=== PATIENT | male | born 1965 | race Caucasian/White ===

== ENCOUNTER 2016-09-11 11:36 | Emergency (ER) | payer OTHER ==
[2016-09-11 11:49] VITALS: BP 157/83; PULSE 69; TEMP 98.2; BMI 26.6
--- NOTE | 2016-09-11 12:38 | PDOC ---
History of Present Illness - General Chief Complaint: Injury Stated Complaint: HEAD INJURY Time Seen by Provider: 09/11/16 12:12 History Source: Patient Exam Limitations: No Limitations - History of Present Illness Initial Comments: 09/11/16 12:44 Chief complaint: Abrasion to forehead lightheadedness slight tenderness around abrasion History of present illness: Patient is a 51 year old female with a history of diverticulitis, stents in right leg, depression here today due to being in our CAT scan department having a CAT scan when IV contrast plastic contrast bottle fell hitting him in the mid upper for head causing a tiny abrasion. Patient reported that he felt slightly lightheaded and had tenderness to the area surrounding. Patient denies any nausea, vomiting, any hemotympanum or severe headache or change in vision or level of alertness. Patient is up-to-date with tetanus. Patient is on a low dose aspirin. Patient did not lose any consciousness. 09/11/16 12:57 Occurred: reports: just prior to arrival Severity: reports: mild Pain Location: reports: head (mid forehead upper ) Method of Injury: Yes: direct blow (by a plastic contrast bottle in CAT SCAN) Modifying Factors: improves with: None Loss of Consciousness: no loss of consciousness Associated Symptoms (Fall): headache, lightheadedness Past History - Past Medical History Allergies/Adverse Reactions: Allergies Allergy/AdvReac Type Severity Reaction Status Date / Time No Known Drug Allergies Allergy Verified 09/11/16 11:44 Home Medications: Ambulatory Orders Aspirin [ASA -] 81 mg PO DAILY 05/30/15 Zolpidem Tartrate [Ambien] 10 mg PO PRN PRN 07/02/15 Pravastatin Sodium [Pravachol -] 40 mg PO HS 03/13/16 Amox-Tr/K Cl [Augmentin 875-125mg Tablet -] 1 tab PO BID@0800,1730 #10 tablet Anemia: No GI Disorders: Yes (Diverticulitis) Disorders: Yes Hypercholesterolemia: Yes Kidney Stones: Yes Suicide Attempt (Hx): No - Family Disease History Family Disease History: Other: Mother (dvt) - Psycho/Social/Smoking Cessation Hx Anxiety: No Suicidal Ideation: No Smoking Status: Yes Smoking History: Never smoked Have you smoked in the past 12 months: No Number of Cigarettes Smoked Daily: 20 If you are a former smoker, when did you quit?: 4 MOTHS AGO Information on smoking cessation initiated: No 'Breaking Loose' booklet given: 07/02/15 Hx Alcohol Use: No Drug/Substance Use Hx: No Substance Use Type: None Hx Substance Use Treatment: No Review of Systems - Review of Systems Able to Perform ROS?: Yes Constitutional: No: Symptoms Reported HEENTM: No: Symptoms Reported Respiratory: No: Symptoms reported Cardiac (ROS): Yes: Lightheadedness ABD/GI: No: Symptoms Reported : No: Symptoms Reported Musculoskeletal: No: Symptoms Reported Integumentary: Yes: Other (tiny abrasion area mid upper forehead ) Neurological: Yes: Headache *Physical Exam - Vital Signs Last Vital Signs Temp Pulse Resp BP Pulse Ox 98.2 F 69 18 157/83 100 09/11/16 11:44 09/11/16 11:44 09/11/16 11:44 09/11/16 11:44 09/11/16 11:44 - Physical Exam General Appearance: Yes: Appropriately Dressed HEENT: positive: EOMI, AZALIA, Normal ENT Inspection Neck: negative: Lymphadenopathy (R), Lymphadenopathy (L) Respiratory/Chest: positive: Lungs Clear, Normal Breath Sounds. negative: Chest Tender, Respiratory Distress Cardiovascular: positive: Regular Rhythm, Regular Rate, S1, S2 Integumentary: positive: Other (tiny abrasion mid upper forehead) Neurologic: positive: patent engineer II-XII NML intact, Fully Oriented, Alert, Normal Response, Respond to painful stimul, Responsive, Finger to Nose. negative: Sensory Deficit Medical Decision Making - Medical Decision Making 09/11/16 12:39 Patient is a 51 year old female with a history of diverticulitis, stents in right leg, depression here today due to being in our CAT scan department having a CAT scan when IV contrast plastic contrast bottle fell hitting him in the mid upper for head causing a tiny abrasion. Patient reported that he felt slightly lightheaded and had tenderness to the area surrounding. Patient denies any nausea, vomiting, any hemotympanum or severe headache or change in vision or level of alertness. Patient is up-to-date with tetanus. Patient is on a low dose aspirin. Patient did not lose any consciousness. Closed head injury without any neurological deficits Abrasion to mid upper forehead Plan: Will send patient home no need to do head CT patient does not have any neurological deficits patient instructed to return if any occur Patient to cleanse abrasion with antibacterial soap and water pat dry and apply bacitracin twice a day until healed. 09/11/16 13:00 *DC/Admit/Observation/Transfer Diagnosis at time of Disposition: Head injury, acute, without loss of consciousness Qualifiers: Encounter type: initial encounter Qualified Code(s): S09.90XA - Unspecified injury of head, initial encounter Abrasion of forehead Qualifiers: Encounter type: initial encounter Qualified Code(s): S00.81XA - Abrasion of other part of head, initial encounter - Discharge Dispostion Disposition: HOME Condition at time of disposition: Stable - Referrals Referrals: Claudio Lee MD [Primary Care Provider] - - Patient Instructions Additional Instructions: Return to emergency room if any nausea, vomiting, severe headache, change in vision or level of alertness Cleanse abrasion to forehead with antibacterial soap and pat dry and apply bacitracin ointment Folloiw Up with your primary care provider within the next few days Patient Voiced understanding of discharge instructions and all questions were answered
== END 2016-09-11 13:04 | disposition home or self-care (01) ==
LOC: JERFT 11:36
DX: S00.81XA Abrasion of other part of head, initial encounter (principal); R42 Dizziness and giddiness; W20.8XXA Other cause of strike by thrown, projected or falling object, initial encounter; Y93.89 Activity, other specified; Y92.238 Other place in hospital as the place of occurrence of the external cause; Y99.8 Other external cause status
CPT/HCPCS: 99281-25

== ENCOUNTER 2016-10-21 11:26 | Observation (INO) | payer OTHER ==
[2016-10-21 11:37] VITALS: BMI 26.6
--- NOTE | 2016-10-21 11:51 | PDOC ---
History of Present Illness <Manpreet Colunga - Last Filed: 10/21/16 18:11> - History of Present Illness Initial Comments: 10/21/16 12:03 The patient is a 51 year old male, with a significant past medical history of diverticulitis, stents in right leg, hypercholesterolemia, kidney stones, and depression, who presents to the emergency department with left sided abdominal pain, nausea, vomiting and diarrhea since early this morning. He states he was up this morning with severe nausea and has been unable to tolerate PO. He states he has been out of work for a year because of his diverticulitis. He reports his lower extremity arterial stent was replaced on Saturday10/17/16 at [facility] with Dr. Galeano. He states he was feeling well after the procedure until this morning. He denies chest pain, shortness of breath, headache and dizziness. He denies fever, chills, and constipation. He denies dysuria, frequency, urgency and hematuria. Allergies: NKDA Social history: denies toxic habits PCP - Dr. Claudio Lee <Gean De Paz - Last Filed: 10/21/16 18:54> - General Chief Complaint: Pain Stated Complaint: ABDOMINAL PAIN Time Seen by Provider: 10/21/16 11:51 Past History - Past Medical History Anemia: No GI Disorders: Yes (Diverticulitis) Disorders: Yes Hypercholesterolemia: Yes Kidney Stones: Yes Suicide Attempt (Hx): No - Family Disease History Family Disease History: Other: Mother (dvt) - Psycho/Social/Smoking Cessation Hx Anxiety: No Suicidal Ideation: No Smoking Status: Yes Smoking History: Former smoker Have you smoked in the past 12 months: No Number of Cigarettes Smoked Daily: 20 If you are a former smoker, when did you quit?: 2016 Information on smoking cessation initiated: No 'Breaking Loose' booklet given: 07/02/15 Hx Alcohol Use: No Drug/Substance Use Hx: No Substance Use Type: None Hx Substance Use Treatment: No <Manpreet Colunga - Last Filed: 10/21/16 18:11> <Gena De Paz - Last Filed: 10/21/16 18:54> - Past Medical History Allergies/Adverse Reactions: Allergies Allergy/AdvReac Type Severity Reaction Status Date / Time No Known Drug Allergies Allergy Verified 10/21/16 11:36 Home Medications: Ambulatory Orders Aspirin [ASA -] 81 mg PO DAILY 05/30/15 Zolpidem Tartrate [Ambien] 10 mg PO PRN PRN 07/02/15 Atorvastatin Ca [Lipitor] 0 mg PO HS 10/21/16 Review of Systems - Review of Systems Able to Perform ROS?: Yes Comments:: 10/21/16 12:03 GENERAL/CONSTITUTIONAL: No fever or chills. No weakness. HEAD, EYES, EARS, NOSE AND THROAT: No change in vision. No ear pain or discharge. No sore throat. CARDIOVASCULAR: No chest pain or shortness of breath. RESPIRATORY: No cough, wheezing, or hemoptysis. GASTROINTESTINAL: (+) nausea, vomiting, diarrhea and abdominal pain. No constipation. GENITOURINARY: No dysuria, frequency, or change in urination. MUSCULOSKELETAL: No joint or muscle swelling or pain. No neck or back pain. SKIN: No rash NEUROLOGIC: No headache, vertigo, loss of consciousness, or change in strength/ sensation. ENDOCRINE: No increased thirst. No abnormal weight change. HEMATOLOGIC/LYMPHATIC: No anemia, easy bleeding, or history of blood clots. ALLERGIC/IMMUNOLOGIC: No hives or skin allergy. <Gena De Paz - Last Filed: 10/21/16 18:54> *Physical Exam - Vital Signs Last Vital Signs Temp Pulse Resp BP Pulse Ox 97.9 F 53 L 18 120/66 100 10/21/16 11:34 10/21/16 11:34 10/21/16 11:34 10/21/16 11:34 10/21/16 11:34 <Manpreet Colunga - Last Filed: 10/21/16 18:11> - Vital Signs Last Vital Signs Temp Pulse Resp BP Pulse Ox 97.9 F 53 L 18 120/66 100 10/21/16 11:34 10/21/16 11:34 10/21/16 11:34 10/21/16 11:34 10/21/16 11:34 - Physical Exam Comments: 10/21/16 12:03 GENERAL: Awake, alert, and fully oriented, in no acute distress HEAD: No signs of trauma EYES: PERRLA, EOMI, sclera anicteric, conjunctiva clear ENT: (+)Dry mucosa. Auricles normal inspection, hearing grossly normal, nares patent, oropharynx clear without exudates. NECK: Normal ROM, supple, no lymphadenopathy, JVD, or masses LUNGS: Breath sounds equal, clear to auscultation bilaterally. No wheezes, and no crackles HEART: Regular rate and rhythm, normal S1 and S2, no murmurs, rubs or gallops ABDOMEN: (+) diffuse mild tenderness on palpation. Soft, normoactive bowel sounds. No guarding, no rebound. No masses EXTREMITIES: Normal range of motion, no edema. No clubbing or cyanosis. No cords, erythema, or tenderness NEUROLOGICAL: Cranial nerves II through XII grossly intact. Normal speech SKIN: Warm, Dry, normal turgor, no rashes or lesions noted. <Gena De Paz - Last Filed: 10/21/16 18:54> Heart Score/ECG Review - ECG Intrepretation Comment:: 10/21/16 12:05 ECG was read by Dr. Colunga at 11:37 Impression: Sinus bradycardia with sinus arrhythmia Vent. Rate: 52 bpm SD Interval: 168 ms QTc: 470 ms <Gena De Paz - Last Filed: 10/21/16 18:54> ED Treatment Course - LABORATORY CBC & Chemistry Diagram: 10/21/16 11:52 10/21/16 11:52 <Manpreet Colunga - Last Filed: 10/21/16 18:11> - LABORATORY CBC & Chemistry Diagram: 10/21/16 11:52 10/21/16 11:52 - RADIOLOGY Radiograph Interpretation: 10/21/16 16:[address] was read by Dr. Roman at 16:43 Impression: Left sided colonic diverticulosis is noted without definite CT evidence of acute diverticulitis. <Gena De Paz - Last Filed: 10/21/16 18:54> Medical Decision Making - Medical Decision Making 10/21/16 12:08 The patient is a 51 year old male who presents with nausea, vomiting, abdominal pain, and diarrhea since this morning s/p right LE arterial stent replacement on 10/17/16 at [facility]. The patients medical history is significant for diverticulitis, stents in right leg, hypercholesterolemia, kidney stones, and depression, I will obtain to CBC, CMP, lipase, urinalysis, and abdominal CT, as well as administer zofran for nausea, to rule out Diverticulitis or ischemic bowel 10/21/16 16:42 The patient was reassessed and is still experiencing nausea and vomiting despite medication. Abdomen CT was reviewed and negative for any acute changes. I will discuss the patient's case with his PCP. Dr. Claudio Lee was paged via phone answering service at 16:58 requesting a call back for doctor to doctor consult. Dr. Claudio Lee was paged a second time via phone answering service at 17:27 requesting a call back for doctor to doctor consult. Dr. Hartley was paged at 17:49 requesting a call back for doctor to doctor consult regarding patient admission. 10/21/16 18:09 Dr. Lee was called a third time at 18:08 and the patient's case was discussed. He requests the patient be admitted to hospitalist and that he no longer admits to [facility]. <Gena De Paz - Last Filed: 10/21/16 18:54> *DC/Admit/Observation/Transfer - Discharge Dispostion Admit: Yes - Attestations Physician Attestion: 10/21/16 11:51 I, Dr. Manpreet Colunga, attest that this document has been prepared under my direction and personally reviewed by me in its entirety. I further attest, that it accurately reflects all work, treatment, procedures and medical decision -making performed by me. <Manpreet Colunga - Last Filed: 10/21/16 18:11> - Attestations Scribe Attestion: 10/21/16 12:04 Documentation prepared by Gena De Paz, acting as medical data analyst for Manpreet Colunga MD <Gena De Paz - Last Filed: 10/21/16 18:54> Diagnosis at time of Disposition: Intractable nausea and vomiting Qualifiers: Vomiting type: unspecified Qualified Code(s): R11.2 - Nausea with vomiting, unspecified - Discharge Dispostion Condition at time of disposition: Unchanged/Unknown - Referrals Referrals: Claudio Lee MD [Primary Care Provider] -
[2016-10-21] MEDS ORDERED: SODIUM CHLORIDE 1,000 ML IV STA (11:52)
[2016-10-21] MEDS ORDERED: ONDANSETRON 4 MG/2 ML VIAL IVPB ONE (11:52)
[2016-10-21] MEDS ORDERED: ONDANSETRON 4 MG/2 ML VIAL ONE (11:57)
[2016-10-21] MEDS ORDERED: LORAZEPAM CARPU-JECT 2 MG/ML DISP.SYRIN ONE (11:59)
[2016-10-21 12:30] LABS: ALBUMIN 4.1 g/dl (3.4-5.0); ANION GAP 15 (8-16); BILIRUBIN,TOTAL 1.3 mg/dL (0.2-1.0); CALCIUM 9.5 mg/dL (8.5-10.1); CO2 20 mmol/L (21-32); CREATININE 1.1 mg/dL (0.7-1.3); GLUCOSE,RANDOM 219 mg/dL (74-106); SGOT/AST 21 U/L (15-37); SGPT/ALT 28 U/L (12-78); TOT PROT 7.3 g/dl (6.4-8.2)
[2016-10-21 12:31] LABS: ALK PHOS 71 U/L (45-117)
[2016-10-21 12:45] LABS: BASOPHIL 0.2 % (0-2.0); EOSINOPHIL 0.1 % (0-4.5); MCH 31.6 pg (25.7-33.7); MCHC 33.4 g/dl (32.0-35.9); MEAN CELL VOLUME 94.7 fl (80-96); MEAN PLT VOLUME 9.3 fl (7.5-11.1); NEUTROPHILS 87.7 % (42.8-82.8); PLATELET COUNT 180 K/MM3 (134-434); RDW 13.4 % (11.9-15.9); WHITE BLOOD COUNT 12.9 K/mm3 (4.0-10.0)
[2016-10-21] MEDS ORDERED: LORAZEPAM CARPU-JECT 2 MG/ML DISP.SYRIN IVPUSH ONE (14:05)
[2016-10-21] MEDS ORDERED: PROMETHAZINE HCL 50 MG/1 ML AMP IM ONE (15:07)
[2016-10-21] MEDS ORDERED: PROMETHAZINE HCL 25 MG/1 ML VIAL ONE ×2 (15:13→15:15)
[2016-10-21] MEDS ORDERED: KETOROLAC TROMETHAMINE 30 MG/1 ML VIAL ONE (16:27)
[2016-10-21] MEDS ORDERED: METOCLOPRAMIDE HCL INJECTION 10 MG/2 ML VIAL IVPUSH ONE (16:27)
[2016-10-21] MEDS ORDERED: KETOROLAC TROMETHAMINE 30 MG/1 ML VIAL IVPUSH ONE ×2 (16:27→20:31)
[2016-10-21] MEDS ORDERED: METOCLOPRAMIDE HCL INJECTION 10 MG/2 ML VIAL ONE (16:27)
[2016-10-21 16:39] LABS: URINE APPEARANCE CLEAR; URINE BILIRUBIN NEGATIVE (NEGATIVE); URINE BLOOD NEGATIVE (NEGATIVE); URINE COLOR STRAW; URINE GLUCOSE (UA) 2+ (NEGATIVE); URINE KETONE 2+ (NEGATIVE); URINE LEUK ESTERASE NEGATIVE (NEGATIVE); URINE NITRITE NEGATIVE (NEGATIVE); URINE PROTEIN NEGATIVE (NEGATIVE); URINE UROBILINOGEN NEGATIVE E.U./dl (0.2-1.0)
--- NOTE | 2016-10-21 19:12 | PN ---
<Darryl Douglas - Last Filed: 10/21/16 19:10> Teaching Attending Note Name of Resident: Jerman Kumar ATTENDING PHYSICIAN STATEMENT I saw and evaluated the patient. I reviewed the resident's note and discussed the case with the resident. I agree with the resident's findings and plan as documented. SUBJECTIVE: OBJECTIVE: ASSESSMENT AND PLAN: <Yevgeniy Burksyna - Last Filed: 10/22/16 00:37> Teaching Attending Note ATTENDING PHYSICIAN STATEMENT I saw and evaluated the patient. I reviewed the resident's note and discussed the case with the resident. I agree with the resident's findings and plan as documented. SUBJECTIVE: Patient is a 51 year old male with significant past medical history of diverticulitis, stents in right leg, hypertension (not on medication), hyperlipidemia, kidney stones, and depression, who presents to the ED with abdominal pain. He reports nausea, vomiting, diarrhea and left sided abdominal pain. He reports 10 vomiting episodes since this morning non bilious non bloody and reports 1 episode of diarrhea at home today. His lower extremity arterial stent placed on 10/17/16 at [facility] by Dr. Galeano. OBJECTIVE: VS: Last Vital Signs Temp Pulse Resp BP Pulse Ox 97.9 F 66 18 187/89 100 10/21/16 11:34 10/21/16 18:35 10/21/16 18:35 10/21/16 18:35 10/21/16 18:35 GEN: NAD HEENT: NCAT, PERRL CARD: +systolic ejection murmur 2/6. RRR, S1 S2 RESP: CTAB ABD: +periumbilical abdominal pain to palpation, BWS x4 EXT: - CCE LABS: CBCD WBC 12.9 K/mm3 (4.0-10.0) H D 10/21/16 11:52 RBC 4.30 M/mm3 (4.00-5.60) 10/21/16 11:52 Hgb 13.6 GM/dL (11.7-16.9) 10/21/16 11:52 Hct 40.7 % (35.4-49) 10/21/16 11:52 MCV 94.7 fl (80-96) 10/21/16 11:52 MCHC 33.4 g/dl (32.0-35.9) 10/21/16 11:52 RDW 13.4 % (11.9-15.9) 10/21/16 11:52 Plt Count 180 K/MM3 (134-434) 10/21/16 11:52 MPV 9.3 fl (7.5-11.1) 10/21/16 11:52 CMP Sodium 141 mmol/L (136-145) 10/21/16 11:52 Potassium 3.7 mmol/L (3.5-5.1) 10/21/16 11:52 Chloride 106 mmol/L (98-107) 10/21/16 11:52 Carbon Dioxide 20 mmol/L (21-32) L 10/21/16 11:52 Anion Gap 15 (8-16) 10/21/16 11:52 BUN 17 mg/dL (7-18) 10/21/16 11:52 Creatinine 1.1 mg/dL (0.7-1.3) D 10/21/16 11:52 Creat Clearance w eGFR > 60 (>60) 10/21/16 11:52 Calcium 9.5 mg/dL (8.5-10.1) 10/21/16 11:52 Total Bilirubin 1.3 mg/dL (0.2-1.0) H 10/21/16 11:52 AST 21 U/L (15-37) 10/21/16 11:52 ALT 28 U/L (12-78) D 10/21/16 11:52 Alkaline Phosphatase 71 U/L (45-117) 10/21/16 11:52 Total Protein 7.3 g/dl (6.4-8.2) 10/21/16 11:52 Albumin 4.1 g/dl (3.4-5.0) 10/21/16 11:[address]: Impression: The study is mildly limited due to respiratory motion artifact. Left-sided colonic diverticulosis is noted without definite CT evidence of acute diverticulitis. ECG: sinus mesfin at 52 ASSESSMENT AND PLAN: Patient is a 51 year old male with significant past medical history of diverticulitis, stents in right leg, hyperlipidemia, recent dx of hypertension not on medication, kidney stones, and depression who who is being admitted for sepsis. 1. Sepsis - Unknown ideology - Hutchins culture - Stat lactic acid - CXR - Hold of abx maybe possible viral ideology 2. Hypertensive urgency - Post Amlodipine - Check home meds in the AM - Pain control - Hold off IVF until better controlled 3. New systolic ejection murmur - ECHO in the AM 4. Abdominal pain - Most likely due to viral gastroenteritis - Negative CT - Zofran PRN 5. Hyperbilirubinemia -Trend -If increasing check direct bili 5. Hyperlipidemia -Continue Statin 6. DVT ppx - Low risk - SCDs Place on Observation. Documentation prepared by SHIRIN Ayala, acting as medical aides teacher for Darryl Douglas MD.
--- NOTE | 2016-10-21 20:20 | HP ---
CHIEF COMPLAINT: nausea, vomiting PCP: Dr. Lee HISTORY OF PRESENT ILLNESS: 51 y/o M w/ PMH of diverticulitis, b/l leg stents for PAD, HLD, nephrolithiasis , and depression presents to the ER with c/o nausea, vomiting and diarrhea since this morning. Pt was feeling well yesterday and had R leg stents placed at [place] on 10/17/16 w/Dr. Galeano. He denies any recent abx use. He had 10 episodes of vomiting this morning and vomited 3 times in the ER today. Vomit was non-bloody and non-bilious. He had one episode of diarrhea before coming to the ER w/o blood in stool and noted that it soft in consistency and not watery. He did not feel like he had fevers or chills earlier today but upon coming to the hospital has began feeling hot and says his clothing had become drenched in sweat. Pt denies any change in diet, eating from new places , eating old food, and denies any sick contact, and no recent abx use. Pt does c/o of some diffuse abd pain since this morning as well, worse in epigastric region. He has not eaten all day today because he feels nauseous. Currently still feels nauseous and hot. He denies CP, SOB, leg swelling, light-headedness , dizziness, dysuria. ER course was notable for: (1) zofran, toradol, CT abd/pelvis (2) (3) PAST MEDICAL HISTORY: diverticulitis, PAD, HLD, nephrolithiasis, depression PAST SURGICAL HISTORY: stents for PAD (10/17/16 and again in 2016) Social History: Smoking: quit 1.5 years ago, smoked 1ppd for 20 years before that Alcohol: denies Drugs: denies Family History: denies any FH Allergies No Known Drug Allergies Allergy (Verified 10/21/16 11:36) HOME MEDICATIONS: Home Medications Medication Instructions Recorded Aspirin [ASA -] 81 mg PO DAILY 05/30/15 Zolpidem Tartrate [Ambien] 10 mg PO PRN PRN 07/02/15 Atorvastatin Ca [Lipitor] 0 mg PO HS 10/21/16 REVIEW OF SYSTEMS CONSTITUTIONAL: "feeling hot", diaphoretic Absent: chills, generalized weakness, malaise, loss of appetite, weight change HEENT: Absent: rhinorrhea, nasal congestion, throat pain, throat swelling, difficulty swallowing, mouth swelling, ear pain, eye pain, visual changes CARDIOVASCULAR: Absent: chest pain, syncope, palpitations, irregular heart rate, lightheadedness , peripheral edema RESPIRATORY: Absent: cough, shortness of breath, dyspnea with exertion, orthopnea, wheezing, stridor, hemoptysis GASTROINTESTINAL: abd pain, nausea, vomiting, diarrhea Absent: abdominal distension, constipation, melena, hematochezia GENITOURINARY: Absent: dysuria, frequency, urgency, hesitancy, hematuria, flank pain, genital pain MUSCULOSKELETAL: Absent: myalgia, arthralgia, joint swelling, back pain, neck pain SKIN: Absent: rash, itching, pallor HEMATOLOGIC/IMMUNOLOGIC: Absent: easy bleeding, easy bruising, lymphadenopathy, frequent infections ENDOCRINE: Absent: unexplained weight gain, unexplained weight loss, heat intolerance, cold intolerance NEUROLOGIC: Absent: headache, focal weakness or paresthesias, dizziness, unsteady gait, seizure, mental status changes, bladder or bowel incontinence PSYCHIATRIC: Absent: anxiety, depression, suicidal or homicidal ideation, hallucinations. PHYSICAL EXAMINATION Vital Signs - 24 hr 10/21/16 19:30 Temperature 99.0 F Pulse Rate 63 Respiratory 18 Rate Blood Pressure 184/87 GENERAL: Awake, alert, and fully oriented. Diaphoretic with gown soaked in sweat . HEAD: Normal with no signs of trauma. EYES: extraocular movements intact, sclera anicteric, conjunctiva clear. No lid lag. EARS, NOSE, THROAT: Ears normal, nares patent. Moist mucous membranes. NECK: Normal range of motion, JVD, or masses. LUNGS: Breath sounds equal, clear to auscultation bilaterally. No wheezes, and no crackles. No accessory muscle use. HEART: Regular rate and rhythm, normal S1 and S2, systolic murmur best heard in aortic region (3/6). ABDOMEN: Soft, diffuse mild tenderness, tenderness greatest in epigastric region , not distended, hypoactive bowel sounds, no guarding, no rebound, no masses. MUSCULOSKELETAL: Normal range of motion at all joints. No bony deformities or tenderness. LOWER EXTREMITIES: warm, well-perfused. No calf tenderness. No peripheral edema. NEUROLOGICAL: Normal speech. gait not obsereved. PSYCHIATRIC: Cooperative. Good eye contact. Appropriate mood and affect. SKIN: Warm, dry, normal turgor, no rashes or lesions noted, normal capillary refill. Surgical sites in inguinal region b/l look well healed no signs of infection. CBCD WBC 12.9 K/mm3 (4.0-10.0) H D 10/21/16 11:52 RBC 4.30 M/mm3 (4.00-5.60) 10/21/16 11:52 Hgb 13.6 GM/dL (11.7-16.9) 10/21/16 11:52 Hct 40.7 % (35.4-49) 10/21/16 11:52 MCV 94.7 fl (80-96) 10/21/16 11:52 MCHC 33.4 g/dl (32.0-35.9) 10/21/16 11:52 RDW 13.4 % (11.9-15.9) 10/21/16 11:52 Plt Count 180 K/MM3 (134-434) 10/21/16 11:52 MPV 9.3 fl (7.5-11.1) 10/21/16 11:52 CMP Sodium 141 mmol/L (136-145) 10/21/16 11:52 Potassium 3.7 mmol/L (3.5-5.1) 10/21/16 11:52 Chloride 106 mmol/L (98-107) 10/21/16 11:52 Carbon Dioxide 20 mmol/L (21-32) L 10/21/16 11:52 Anion Gap 15 (8-16) 10/21/16 11:52 BUN 17 mg/dL (7-18) 10/21/16 11:52 Creatinine 1.1 mg/dL (0.7-1.3) D 10/21/16 11:52 Creat Clearance w eGFR > 60 (>60) 10/21/16 11:52 Random Glucose 219 mg/dL (74-106) H D 10/21/16 11:52 Calcium 9.5 mg/dL (8.5-10.1) 10/21/16 11:52 Total Bilirubin 1.3 mg/dL (0.2-1.0) H 10/21/16 11:52 AST 21 U/L (15-37) 10/21/16 11:52 ALT 28 U/L (12-78) D 10/21/16 11:52 Alkaline Phosphatase 71 U/L (45-117) 10/21/16 11:52 Total Protein 7.3 g/dl (6.4-8.2) 10/21/16 11:52 Albumin 4.1 g/dl (3.4-5.0) 10/21/16 11:52 Urine Test Results Urine Color Straw 10/21/16 11:52 Urine Appearance Clear 10/21/16 11:52 Urine pH 8.0 (5.0-8.0) D 10/21/16 11:52 Ur Specific [place] 1.016 (1.001-1.035) 10/21/16 11:52 Urine Protein Negative (NEGATIVE) 10/21/16 11:52 Urine Glucose (UA) 2+ (NEGATIVE) H 10/21/16 11:52 Urine Ketones 2+ (NEGATIVE) H 10/21/16 11:52 Urine Blood Negative (NEGATIVE) 10/21/16 11:52 Urine Nitrite Negative (NEGATIVE) 10/21/16 11:52 Urine Bilirubin Negative (NEGATIVE) 10/21/16 11:52 Ur Leukocyte Esterase Negative (NEGATIVE) 10/21/16 11:52 Laboratory Tests 10/21/16 10/21/16 11:52 20:50 Lactic Acid Pending Lipase [address] abd/pelvis 10/21/16: L sided colonic diverticulosis noted without definite CT evidence of acute diverticulitis. CXR 10/21/16 as per my read, no acute pathology Active Medications Acetaminophen (Tylenol -) 650 mg PO Q6H PRN PRN Reason: FEVER OR PAIN Ondansetron HCl (Zofran Injection) 4 mg IVPB Q8H PRN PRN Reason: NAUSEA ASSESSMENT/PLAN: 51 y/o M w/ PMH of diverticulitis, b/l leg stents for PAD, HLD, nephrolithiasis , and depression presents to the ER with c/o nausea, vomiting and diarrhea since this morning. Admitted for sepsis. -Attempted to call ines on [facility] for med list but was placed on hold for over 30+ min. Please try to confirm med list from pharmacy. -Sepsis secondary to unknown etiology -WBC, Fever 100.6 (2/4 sirs) -F/u BCx, UCx -trend Lactic acid, first lactic acid 1.9 (borderline high) -tylenol 650 mg po q6h prn for fever/pain -stat cxr ordered to assess for pna -HTN urgency -BP 195/95 -> after one dose of amlodipine: 156/76 -amlodipine 5 mg for now, reassess after medication given -blood pressure responding well to amlodipine, will order amlodipine 5 mg po qd for now -pt states he was only recently diagnosed with htn but has not been started on any meds yet -trop neg x1 -New onset murmur -systolic murmur best heard in aortic region -Echo ordered -abdominal pain secondary to viral gastroenteritis -stool is soft, not watery -will hold off on fluids for now due to hypertensive urgency -pain control w/ toradol 30 mg once for now -zofran 4mg IV q8h prn for nausea/vomiting -Hyperglycemia -A1C added on, f/u -Hyperbilirubinemia -Monitor for now, if trending up, check direct bili -ELEAZAR -Baseline Cr 0.8, currently 1.1 -Monitor for now, most likely secondary to dehydration, vomiting -HLD -c/w statin once med is found through pharmacy -Insomnia -Ambien 5mg po qhs once confirmed through pharmacy -DVT ppx -SCDs -FEN -No fluids for now due to elevated blood pressure -electrolytes wnl -NPO for now except for meds -Dispo: Admit to M/S Visit type - Emergency Visit Emergency Visit: Yes ED Registration Date: 10/21/16 Care time: The patient presented to the Emergency Department on the above date and was hospitalized for further evaluation of their emergent condition. - New Patient This patient is new to me today: Yes Date on this admission: 10/25/16 - Critical Care Critical Care patient: No
[2016-10-21] MEDS ORDERED: ACETAMINOPHEN 325 MG TABLET (FP) PO PRN (20:21)
[2016-10-21] MEDS ORDERED: ONDANSETRON 4 MG/2 ML VIAL IVPB PRN ×2 (20:21→20:31)
[2016-10-21] MEDS: amLODIPine BESYLATE 5 MG TABLET (FP) PO ONE ×2 (20:42→20:47)
[2016-10-22 08:11] LABS: BASOPHIL 0.2 % (0-2.0); MCH 31.6 pg (25.7-33.7); MCHC 33.7 g/dl (32.0-35.9); MEAN CELL VOLUME 93.8 fl (80-96); MEAN PLT VOLUME 9.4 fl (7.5-11.1); NEUTROPHILS 82.3 % (42.8-82.8); PLATELET COUNT 181 K/MM3 (134-434); RDW 13.5 % (11.9-15.9); WHITE BLOOD COUNT 14.5 K/mm3 (4.0-10.0)
[2016-10-22 08:45] LABS: ALBUMIN 4.5 g/dl (3.4-5.0); ALK PHOS 73 U/L (45-117); ANION GAP 13 (8-16); BILIRUBIN,TOTAL 0.8 mg/dL (0.2-1.0); CALCIUM 9.6 mg/dL (8.5-10.1); CO2 22 mmol/L (21-32); CREATININE 0.8 mg/dL (0.7-1.3); GLUCOSE,RANDOM 115 mg/dL (74-106); SGOT/AST 18 U/L (15-37); SGPT/ALT 27 U/L (12-78); TOT PROT 7.6 g/dl (6.4-8.2)
[2016-10-22] MEDS ORDERED: PT OWN MED DRAWER 7, Y5N ONE (09:36)
[2016-10-22] MEDS ORDERED: amLODIPine BESYLATE 5 MG TABLET (FP) PO SCH (10:00)
--- NOTE | 2016-10-22 10:38 | PN ---
Teaching Attending Note Name of Resident: Kei Mcfadden ATTENDING PHYSICIAN STATEMENT I saw and evaluated the patient. I reviewed the resident's note and discussed the case with the resident. I agree with the resident's findings and plan as documented. SUBJECTIVE:states his nausea has improved. has not vomited today. no repeated episodes of loose stools (1 episode yesterday) states his symptoms woke him up from sleep yesterday and he was concerned he was having another diverticular flare, last one 3 months ago and completed abx treatment at that time. states he has had several flares this past year. states he did not receive ABx treatment for his angioplasty he had last week. girlfriend prepares food at home. no unusual or differnt foods, no sick contacts. no recent travel. does tile work for a living. recently started on HTN medications 3 months ago and states he is compliant but does not recall name. denies CP, SOB,fever, chills, dysuria, hematuria, BRBPR or melena OBJECTIVE: Last Vital Signs Temp Pulse Resp BP Pulse Ox 99.0 F 56 L 20 160/80 100 10/22/16 06:00 10/22/16 06:00 10/22/16 06:00 10/22/16 06:00 10/22/16 03:13 General mildly anxious CV S1 S2 RRR no murmur/rub/gallop Lungs CTA B/L no wheezing/rales/rhonchi Abdomen soft epigastric tenderness no rebound/guarding/yancey sign. nomoactive BS Extremities no edema. ecchymosis L groin no signs of erythema/tenderness/warmth , no purulent drainage R groin nothing appreciated ASSESSMENT AND PLAN: 51yo M with PMH HTN, diverticulosis, dyslipidemia and PVD with recent stent placement presented to the ER and was admitted for observation 1. Sepsis due to presumed viral gastroenteritis- clinically improved. states he feels much better with no recurrent episodes of vomiting and no loose stools. Tm 100.6 with mild leukocytosis. UA and CXR negative for acute pathology. requesting to eat. will start clear liquid diet, if tolerates will advance to full diet. CT done with no signs of infection 2. HTN urgency- received norvasc with improvement. call pharmacy to confirm home medications and re-start medications 3. Hyperglycemia- A1c 5.5, no indication for further management at this time 4. ELEAZAR- dehydration. resolved 5. murmur- murmur appreciated on admission, likely flow murmur as not appreciated at this time. echo already done. will f/u 6. PVD- with stent placement. on crestor 5mg. discuss with vascular surgeon about increasing high intensity statin 7. d/c planning if able to tolerate diet
[2016-10-22] MEDS ORDERED: SODIUM CHLORIDE 1,000 ML IV SCH (10:45)
--- NOTE | 2016-10-22 11:02 | PN ---
Physical Exam: SUBJECTIVE: Patient seen and examined Pt is awake, alert and oriented Mildly anxious No s.s of acute distress no fever or chills no more n/v since yesterday no more abdominal pain no diarrhea no cough, rhinnorhea, shortness of breath, chest pain, no dysuria, no skin redness/swelling/tenderness OBJECTIVE: Vital Signs Period Temp Pulse Resp BP Sys/Springer Pulse Ox Last 24 Hr 98.4 F-100.6 F 56-63 18-20 156-195/76-95 100-100 GENERAL: The patient is awake, alert, and fully oriented, in no acute distress. HEAD: Normal with no signs of trauma. ENT: Ears normal, nares patent, oropharynx clear without exudates, dry mucous membranes. NECK: Trachea midline, full range of motion, supple. LUNGS: Breath sounds equal, clear to auscultation bilaterally, no wheezes, no crackles, no accessory muscle use. HEART: Regular rate and rhythm, S1, S2 without murmur, rub or gallop. ABDOMEN: Soft, epigastric tenderness, nondistended, normoactive bowel sounds, no guarding, no rebound, no hepatosplenomegaly, no masses. EXTREMITIES: 2+ pulses, warm, well-perfused, no edema. NEUROLOGICAL:. Normal speech, normal gait PSYCH: Normal mood, normal affect. SKIN: Warm, dry, normal turgor, no rashes or lesions noted Laboratory Results - last 24 hr 10/21/16 10/21/16 10/21/16 20:50 21:15 21:15 WBC RBC Hgb Hct MCV MCHC RDW Plt Count MPV Neutrophils % Lymphocytes % Monocytes % Eosinophils % Basophils % Sodium Potassium Chloride Carbon Dioxide Anion Gap BUN Creatinine Creat Clearance w eGFR Random Glucose Hemoglobin A1c % 5.5 Lactic Acid 1.949 Calcium Total Bilirubin AST ALT Alkaline Phosphatase Troponin I < 0.02 Total Protein Albumin 10/22/16 10/22/16 06:30 06:30 WBC 14.5 H RBC 4.37 Hgb 13.8 Hct 41.0 MCV 93.8 MCHC 33.7 RDW 13.5 Plt Count 181 MPV 9.4 Neutrophils % 82.3 Lymphocytes % 10.2 D Monocytes % 7.3 Eosinophils % 0.0 D Basophils % 0.2 Sodium 139 Potassium 3.5 Chloride 104 Carbon Dioxide 22 Anion Gap 13 BUN 14 Creatinine 0.8 D Creat Clearance w eGFR > 60 Random Glucose 115 H D Hemoglobin A1c % Lactic Acid Calcium 9.6 Total Bilirubin 0.8 D AST 18 ALT 27 Alkaline Phosphatase 73 Troponin I Total Protein 7.6 Albumin 4.5 Active Medications Generic Name Dose Route Start Last Admin Trade Name Bronsonq PRN Reason Stop Dose Admin Acetaminophen 650 mg 10/21/16 20:21 Tylenol - PO Q6H PRN FEVER OR PAIN Amlodipine Besylate 5 mg 10/22/16 10:00 10/22/16 09:42 Norvasc - PO 5 mg DAILY NICOLASA Administration Sodium Chloride 1,000 mls @ 100 mls/hr 10/22/16 10:45 Normal Saline - IV ASDIR NICOLASA Ondansetron HCl 4 mg 10/21/16 20:31 Zofran Injection IVPB Q8H PRN NAUSEA CBC, BMP 10/22/16 06:30 10/22/16 06:30 Laboratory Tests 10/21/16 10/21/16 10/21/16 11:52 11:52 20:50 Hemoglobin A1c % Lactic Acid 1.949 Total Bilirubin Troponin I Lipase 100 Urine Nitrite Negative Ur Leukocyte Esterase Negative 10/21/16 10/21/16 10/22/16 21:15 21:15 06:30 Hemoglobin A1c % 5.5 Lactic Acid Total Bilirubin 0.8 D Troponin I < 0.02 Lipase Urine Nitrite Ur Leukocyte Esterase ASSESSMENT/PLAN: 51 year old male with pmh of diverticulitis abnd recent right leg stent placeemnt (10/17/16) presnted to the ED with complaint of nausea, vomiting, abdominal pain and low grade fever. CT of abdomen was negative. Sepsis rt to viral gastroenteritis Pt has fever, leukocytosis and suspected GI source of infection No diarrhea, no bloody stool, no mucus in stool, no recent antibiotic use, no sick contact Symptoms of nausea and vomiting has resolved Pt does not look toxic and is comfortable right now No need for antibiotic right now IV fluid NS at 100ml/h Zofran PRN ACetaminophen PRN follow culture result Hypertensive urgency BP was 195/95 on admission SBP has been in 160's overnight On amlodipine 5mg po qd Systolic murmur Ritchie by night team F/u echo Hyperglicemia r/o impaired glucose tolerance/Pre-diabetes BS 219 on admission HgA1c 5.5 Not in prediabetes or diabetes range but always encourage lifestyle change with weight loss, diet, exercise ELEAZAR Cr 1.1, basline seem to be 0.8. likely rt to dehydration from vomiting Start NS at 100ml/h Hyperlipidemia resume rosubastatin 5mg PO qd Hypebilirubinemia Total Bilirubin 1.3 to 0.8. Resolved FEN Fluuid: NS at 100ml/h Electrolytes: No abdnormalities Nutrition: Clear liquid diet DVT prophylaxis: early ambulation [facility] and tolerance Visit type - Emergency Visit Emergency Visit: Yes ED Registration Date: 10/21/16 Care time: The patient presented to the Emergency Department on the above date and was hospitalized for further evaluation of their emergent condition. - New Patient This patient is new to me today: Yes Date on this admission: 10/22/16 - Critical Care Critical Care patient: No - Discharge Referral Referred to [facility] Med P.C.: No
[2016-10-22 17:47] VITALS: BP 132/77; PULSE 83; TEMP 98.5
--- NOTE | 2016-10-22 18:36 | DS ---
Physical Exam: SUBJECTIVE: Patient seen and examined OBJECTIVE: Vital Signs Period Temp Pulse Resp BP Sys/Springer Pulse Ox Last 24 Hr 98.3 F-100.6 F 56-108 18-20 130-195/76-95 100-100 PHYSICAL EXAM GENERAL: The patient is awake, alert, and fully oriented, in no acute distress. HEAD: Normal with no signs of trauma. EYES: PERRL, extraocular movements intact, sclera anicteric, conjunctiva clear. ENT: Ears normal, nares patent, oropharynx clear without exudates, moist mucous membranes. NECK: Trachea midline, full range of motion, supple. LUNGS: Breath sounds equal, clear to auscultation bilaterally, no wheezes, no crackles, no accessory muscle use. HEART: Regular rate and rhythm, S1, S2 without murmur, rub or gallop. ABDOMEN: Soft, nontender, nondistended, normoactive bowel sounds, no guarding, no rebound, no hepatosplenomegaly, no masses. EXTREMITIES: 2+ pulses, warm, well-perfused, no edema. NEUROLOGICAL: Cranial nerves II through XII grossly intact. Normal speech, gait not observed. PSYCH: Normal mood, normal affect. SKIN: Warm, dry, normal turgor, no rashes or lesions noted. LABS Laboratory Results - last 24 hr 10/21/16 10/21/16 10/21/16 20:50 21:15 21:15 WBC RBC Hgb Hct MCV MCHC RDW Plt Count MPV Neutrophils % Lymphocytes % Monocytes % Eosinophils % Basophils % Sodium Potassium Chloride Carbon Dioxide Anion Gap BUN Creatinine Creat Clearance w eGFR Random Glucose Hemoglobin A1c % 5.5 Lactic Acid 1.949 Calcium Total Bilirubin AST ALT Alkaline Phosphatase Troponin I < 0.02 Total Protein Albumin 10/22/16 10/22/16 06:30 06:30 WBC 14.5 H RBC 4.37 Hgb 13.8 Hct 41.0 MCV 93.8 MCHC 33.7 RDW 13.5 Plt Count 181 MPV 9.4 Neutrophils % 82.3 Lymphocytes % 10.2 D Monocytes % 7.3 Eosinophils % 0.0 D Basophils % 0.2 Sodium 139 Potassium 3.5 Chloride 104 Carbon Dioxide 22 Anion Gap 13 BUN 14 Creatinine 0.8 D Creat Clearance w eGFR > 60 Random Glucose 115 H D Hemoglobin A1c % Lactic Acid Calcium 9.6 Total Bilirubin 0.8 D AST 18 ALT 27 Alkaline Phosphatase 73 Troponin I Total Protein 7.6 Albumin 4.5 HOSPITAL COURSE: Date of Admission:10/21/16 51 y/o M w/ PMH of diverticulitis, b/l leg stents for PAD, HLD, nephrolithiasis , and depression presents to the ER with c/o nausea, vomiting and diarrhea since this morning. Pt was feeling well yesterday and had R leg stents placed at [place] on 10/17/16 w/Dr. Galeano. He denies any recent abx use. He had 10 episodes of vomiting this morning and vomited 3 times in the ER today. Vomit was non-bloody and non-bilious. He had one episode of diarrhea before coming to the ER w/o blood in stool and noted that it soft in consistency and not watery. He did not feel like he had fevers or chills earlier today but upon coming to the hospital has began feeling hot and says his clothing had become drenched in sweat. Pt denies any change in diet, eating from new places , eating old food, and denies any sick contact, and no recent abx use. Pt does c/o of some diffuse abd pain since this morning as well, worse in epigastric region. He has not eaten all day today because he feels nauseous. Currently still feels nauseous and hot. He denies CP, SOB, leg swelling, light-headedness , dizziness, dysuria. ER course was notable for:(1) zofran, toradol, CT abd/pelvis 51 year old male with pmh of diverticulitis abnd recent right leg stent placement (10/17/16) presented to the ED with complaint of nausea, vomiting, abdominal pain and low grade fever. CT of abdomen was negative. Pt was diagnosed with Sepsis rt to viral gastroenteritis, Pt has fever, leukocytosis and suspected GI source of infection on admission. Pt had No diarrhea, no bloody stool, no mucus in stool, no recent antibiotic use, no sick contact. Symptoms of nausea and vomiting has resolved. Pt does not look toxic and is comfortable right now. No need for antibiotic right now. Pt was treated with supportive care with IV fluid NS at 100ml/h, Zofran PRN, Acetaminophen PRN. Pt had Hypertensive urgency. BP was 195/95 on admission. SBP has been in 160's overnight. Pt was started on amlodipine 5mg po qd. Blood pressure normalized. The Admitted physician felt that there was a Systolic murmur,an echo was done, it was essentially normal. Pt has Hyperlipidemia. We resume rosubastatin 5mg PO qd. Pt had Hypebilirubinemia, with Total Bilirubin 1.3. it was resolved upon repeat with Tbili 0.8. Date of Discharge: 10/22/16 Minutes to complete discharge: 40 Discharge Summary Reason For Visit: INTRACTABLE NAUSEA AND VOMITING Current Active Problems Intractable nausea and vomiting (Acute) Condition: Stable - Instructions Diet, Activity, Other Instructions: Discharge Home Resume Home Medication Start Low Sodium Diet Start Amlodipine 5mg orally daily Follow up with your primary care physician within 1 week Referrals: Claudio Lee MD [Primary Care Provider] - Delvis Galeano MD [Staff Physician] - Disposition: HOME - Home Medications Comprehensive Discharge Medication List: Ambulatory Orders Aspirin [ASA -] 81 mg PO DAILY 05/30/15 Zolpidem Tartrate [Ambien] 10 mg PO PRN PRN 07/02/15 Amlodipine Besylate [Norvasc -] 5 mg PO DAILY #30 tablet 10/22/16 Clopidogrel Bisulfate [Plavix -] 75 mg PO DAILY 10/22/16 FENTANYL 50mcg PATCH [DURAGESIC 50mcg PATCH -] 1 adh.patch TD Q3D 10/22/16 Oxycodone HCl 10 mg PO Q8H PRN 10/22/16 Pantoprazole Sodium [Protonix -] 40 mg PO DAILY 10/22/16 Paroxetine HCl [Paxil -] 10 mg PO DAILY 10/22/16 Rosuvastatin Calcium [Crestor] 1 tab PO HS 10/22/16 This patient is new to me today: No Emergency Visit: Yes ED Registration Date: 10/21/16 Care time: The patient presented to the Emergency Department on the above date and was hospitalized for further evaluation of their emergent condition. Critical Care patient: No - Discharge Referral Referred to [facility] Med P.C.: No
--- NOTE | 2016-10-23 13:36 | EKG ---
Test Reason : Blood Pressure : / mmHG Vent. Rate : 052 BPM Atrial Rate : 052 BPM P-R Int : 168 ms QRS Dur : 092 ms QT Int : 506 ms P-R-T Axes : 059 069 089 degrees QTc Int : 470 ms SINUS BRADYCARDIA WITH SINUS ARRHYTHMIA OTHERWISE NORMAL ECG WHEN COMPARED WITH ECG OF 16-FEB-2016 09:07, NO SIGNIFICANT CHANGE WAS FOUND Confirmed by WILFRID HERNANDEZ MD ([id number]) on 10/23/2016 1:35:49 PM Referred By: Confirmed By:WILFRID HERNANDEZ MD
== END 2016-10-22 18:55 | disposition home or self-care (01) ==
LOC: JER 11:26 → INTOOBSV 18:37 → JERBED 18:37 → J8W 18:57
PROVIDERS: ADMIT Internal Medicine; ATTEND Internal Medicine
DX: A41.89 Other specified sepsis (principal); R11.2 Nausea with vomiting, unspecified; E78.00 Pure hypercholesterolemia, unspecified; K57.92 Diverticulitis of intestine, part unspecified, without perforation or abscess without bleeding; N20.0 Calculus of kidney; F32.9 Major depressive disorder, single episode, unspecified; G47.09 Other insomnia; E80.6 Other disorders of bilirubin metabolism; R01.1 Cardiac murmur, unspecified; N17.9 Acute kidney failure, unspecified; I16.0 Hypertensive urgency; I73.89 Other specified peripheral vascular diseases; A08.39 Other viral enteritis; R73.9 Hyperglycemia, unspecified; Z87.891 Personal history of nicotine dependence
CPT/HCPCS: 36415; 71010-TC; 74177-TC; 80053; 81003; 83036; 83605; 83690; 84484; 85025; 87040; 87086; 93005; 93010; 93306-TC; 99284-25; G0378

== ENCOUNTER 2016-10-24 04:45 | Emergency (ER) | payer OTHER ==
--- NOTE | 2016-10-24 04:59 | PDOC ---
History of Present Illness - General History Source: Patient <LavellChristopher - Last Filed: 10/24/16 06:40> - General History Source: Patient Exam Limitations: No Limitations - History of Present Illness Initial Comments: 10/24/16 05:13 The patient is a 51 year old male with significant past medical history of diverticulitis, PAD s/p b/l leg stents (10/17/16), hyperlipidemia, nephrolithiasis, and depression who presents to the ED with persistent abdominal pain. Patient was seen here on 10/21 for abdominal pain with n/v/d. At that time, he was also noted to be s/p right LE arterial stent replacement on at [facility]. Patient was admitted for sepsis of unknown origin, treated and discharged on 10/22. He returns today for similar symptoms and states his symptoms has not resolved since his last discharge. The patient denies fever, chills, cough, SOB, chest pain, and palpitations. Allergies: NKDA Social History: Quit 1.5 years ago (smoked ppd for 20 years). Denies etoh or drug use. Past Surgical History: stents for PAD (10/17/16) PCP: Dr. Claudio Lee <Adrianna Cristina - Last Filed: 10/24/16 06:44> - General Stated Complaint: REVISIT, ABD PAIN Time Seen by Provider: 10/24/16 04:58 Past History - Past Medical History Anemia: No GI Disorders: Yes (Diverticulitis) Disorders: Yes Hypercholesterolemia: Yes Kidney Stones: Yes Suicide Attempt (Hx): No - Family Disease History Family Disease History: Other: Mother (dvt) - Psycho/Social/Smoking Cessation Hx Anxiety: No Suicidal Ideation: No Smoking Status: Yes Smoking History: Never smoked Have you smoked in the past 12 months: No Number of Cigarettes Smoked Daily: 20 If you are a former smoker, when did you quit?: 4 MOTHS AGO 'Breaking Loose' booklet given: 07/02/15 Hx Alcohol Use: No Drug/Substance Use Hx: No Substance Use Type: None Hx Substance Use Treatment: No <Christopher Monte - Last Filed: 10/24/16 06:40> <Adrianna Cristina - Last Filed: 10/24/16 06:44> - Past Medical History Allergies/Adverse Reactions: Allergies Allergy/AdvReac Type Severity Reaction Status Date / Time No Known Drug Allergies Allergy Verified 10/21/16 11:36 Home Medications: Ambulatory Orders Aspirin [ASA -] 81 mg PO DAILY 05/30/15 Zolpidem Tartrate [Ambien] 10 mg PO PRN PRN 07/02/15 Amlodipine Besylate [Norvasc -] 5 mg PO DAILY #30 tablet 10/22/16 Clopidogrel Bisulfate [Plavix -] 75 mg PO DAILY 10/22/16 FENTANYL 50mcg PATCH [DURAGESIC 50mcg PATCH -] 1 adh.patch TD Q3D 10/22/16 Oxycodone HCl 10 mg PO Q8H PRN 10/22/16 Pantoprazole Sodium [Protonix -] 40 mg PO DAILY 10/22/16 Paroxetine HCl [Paxil -] 10 mg PO DAILY 10/22/16 Rosuvastatin Calcium [Crestor] 1 tab PO HS 10/22/16 Ibuprofen 800 mg PO TID #30 tablet 10/24/16 Ondansetron [Zofran *Odt*] 4 mg SL TID #30 od.tablet 10/24/16 Review of Systems - Review of Systems Able to Perform ROS?: Yes Comments:: 10/24/16 05:13 CONSTITUTIONAL: Absent: fever, chills, diaphoresis, generalized weakness, malaise, loss of appetite HEENT: Absent: rhinorrhea, nasal congestion, throat pain, throat swelling, difficulty swallowing, mouth swelling, ear pain, eye pain, visual Changes CARDIOVASCULAR: Absent: chest pain, syncope, palpitations, irregular heart rate, lightheadedness , peripheral edema RESPIRATORY: Absent: cough, shortness of breath, dyspnea with exertion, orthopnea, wheezing, stridor, hemoptysis GASTROINTESTINAL: +abdominal pain, nausea, vomiting, diarrhea Absent: abdominal distension, constipation, melena, hematochezia GENITOURINARY: Absent: dysuria, frequency, urgency, hesitancy, hematuria, flank pain, genital pain MUSCULOSKELETAL: Absent: myalgia, arthralgia, joint swelling SKIN: Absent: rash, itching, pallor NEUROLOGIC: Absent: headache, focal weakness or paresthesias, dizziness, unsteady gait, seizure, mental status changes, bladder or bowel incontinence PSYCHIATRIC: Absent: anxiety, depression, suicidal or homicidal ideation, hallucinations. <Bhskyeat,Adrianna - Last Filed: 10/24/16 06:44> *Physical Exam - Vital Signs Last Vital Signs Temp Pulse Resp BP Pulse Ox 64 20 177/95 100 10/24/16 05:02 10/24/16 05:02 10/24/16 05:02 10/24/16 05:02 - Physical Exam Comments: 10/24/16 05:14 GENERAL: Well developed, well nourished. Awake and alert. Mild distress. HEENT: Normocephalic, atraumatic. PERRLA, EOMI. No conjunctival pallor. Sclera are non- icteric. Moist mucous membranes. Oropharynx is clear. NECK: Supple. Full ROM. No JVD. Carotid pulses 2+ and symmetric, without bruits. No thyromegaly. No lymphadenopathy. CARDIOVASCULAR: Regular rate and rhythm. No murmurs, rubs, or gallops. Distal pulses are 2+ and symmetric. PULMONARY: No evidence of respiratory distress. Lungs clear to auscultation bilaterally. No wheezing, rales or rhonchi. ABDOMINAL: Soft. Mild diffuse tenderness. Non-distended. No rebound or guarding. No organomegaly. Normoactive bowel sounds. MUSCULOSKELETAL Normal range of motion at all joints. No bony deformities or tenderness. No CVA tenderness. EXTREMITIES: No cyanosis. No clubbing. No edema. No calf tenderness. SKIN: Warm and dry. Normal capillary refill. No rashes. No jaundice. NEUROLOGICAL: Alert, awake, appropriate. Cranial nerves 2-12 intact. Moving all extremities. No gross focal neurological deficits. PSYCHIATRIC: Cooperative. Good eye contact. Appropriate mood and affect. <Adrianna Cristina - Last Filed: 10/24/16 06:44> Heart Score/ECG Review - ECG Impressions Comment:: 10/24/16 06:44 NSR @64bpm Normal ECG <Adrianna Cristina - Last Filed: 10/24/16 06:44> ED Treatment Course - LABORATORY CBC & Chemistry Diagram: 10/24/16 05:22 10/24/16 05:22 <Christopher Monte - Last Filed: 10/24/16 06:40> - LABORATORY CBC & Chemistry Diagram: 10/24/16 05:22 10/24/16 05:22 <Adrianna Cristina - Last Filed: 10/24/16 06:44> Medical Decision Making - Medical Decision Making 10/24/16 06:42 Dr. Monte: The scribe's documentation has been prepared under my direction and personally reviewed by me in its entirery. I confirm that the note above accurately reflects all work, treatment, procedures, and medical decision making performed by me. Pt feels better. Pt will be discharged and follow up with his pcp and GI. <Christopher Monte - Last Filed: 10/24/16 06:40> *DC/Admit/Observation/Transfer - Discharge Dispostion Admit: No <Christopher Monte - Last Filed: 10/24/16 06:40> - Attestations Scribe Attestion: 10/24/16 05:14 Documentation prepared by Adrianna Cristina, acting as medical associate for Christopher Monte MD <Adrianna Cristina - Last Filed: 10/24/16 06:44> Diagnosis at time of Disposition: Abdominal pain Diverticulosis Qualifiers: Diverticulosis site: unspecified location Diverticulosis bleeding: diverticulosis without bleeding Qualified Code(s): K57.90 - Diverticulosis of intestine, part unspecified, without perforation or abscess without bleeding - Discharge Dispostion Disposition: HOME Condition at time of disposition: Stable - Prescriptions Prescriptions: Ibuprofen 800 mg PO TID #30 tablet Ondansetron [Zofran *Odt*] 4 mg SL TID #30 od.tablet - Referrals Referrals: Claudio Lee MD [Primary Care Provider] - Hardeep Marin MD [Staff Physician] - - Patient Instructions Printed Discharge Instructions: DI for Diverticulosis
[2016-10-24] MEDS ORDERED: HYDROmorphone HCL CARPU-JECT 1 MG/1 ML DISP.SYRIN IVPUSH ONE (05:04)
[2016-10-24] MEDS ORDERED: ONDANSETRON 4 MG/2 ML VIAL IVPUSH STA (05:04)
[2016-10-24] MEDS ORDERED: SODIUM CHLORIDE 1,000 ML IV STA (05:04)
[2016-10-24 05:05] VITALS: BMI 26.6
[2016-10-24] MEDS ORDERED: ONDANSETRON 4 MG/2 ML VIAL ONE ×2 (05:10→06:24)
[2016-10-24] MEDS ORDERED: HYDROmorphone HCL CARPU-JECT 1 MG/1 ML DISP.SYRIN ONE ×2 (05:12→06:24)
[2016-10-24 05:47] LABS: BASOPHIL 0.6 % (0-2.0); MCH 31.7 pg (25.7-33.7); MCHC 34.3 g/dl (32.0-35.9); MEAN CELL VOLUME 92.5 fl (80-96); MEAN PLT VOLUME 9.3 fl (7.5-11.1); NEUTROPHILS 82.1 % (42.8-82.8); PLATELET COUNT 205 K/MM3 (134-434); RDW 13.3 % (11.9-15.9)
[2016-10-24 06:02] LABS: INR 1.17 (0.82-1.09); PROTHROMBIN TIME (PATIENT) 12.9 SEC (9.98-11.88)
[2016-10-24 06:14] LABS: ALBUMIN 4.6 g/dl (3.4-5.0); ALK PHOS 77 U/L (45-117); ANION GAP 17 (8-16); BILIRUBIN,TOTAL 1.3 mg/dL (0.2-1.0); CALCIUM 9.6 mg/dL (8.5-10.1); CO2 21 mmol/L (21-32); GLUCOSE,RANDOM 151 mg/dL (74-106); SGPT/ALT 37 U/L (12-78); TOT PROT 8.1 g/dl (6.4-8.2)
[2016-10-24 06:16] LABS: MAGNESIUM 1.9 mg/dL (1.8-2.4); SGOT/AST 30 U/L (15-37)
[2016-10-24] MEDS ORDERED: METOCLOPRAMIDE HCL INJECTION 10 MG/2 ML VIAL IVPB ONE (07:37)
[2016-10-24] MEDS ORDERED: FAMOTIDINE 20 MG/50 ML IVPB 50 ML IVPB ONE ×2 (07:37→08:21)
--- NOTE | 2016-10-24 07:48 | PDOC ---
*Physical Exam - Vital Signs Last Vital Signs Temp Pulse Resp BP Pulse Ox 64 20 177/95 100 10/24/16 05:02 10/24/16 05:02 10/24/16 05:02 10/24/16 05:02 - Physical Exam Comments: 10/24/16 07:44 VSS well appearing epigastric and RLQ discomfort to palpation without guarding or rebound soft/nondistended no jaundice ED Treatment Course - LABORATORY CBC & Chemistry Diagram: 10/24/16 05:22 10/24/16 05:22 - ADDITIONAL ORDERS Additional order review: Laboratory Results 10/24/16 10/24/16 10/24/16 05:22 05:22 05:22 INR 1.17 H Sodium 138 Potassium 3.6 Chloride 100 Carbon Dioxide 21 Anion Gap 17 H BUN 21 H D Creatinine 1.0 D Creat Clearance w eGFR > 60 Random Glucose 151 H D Lactic Acid 2.682 H* Calcium 9.6 Magnesium 1.9 Total Bilirubin 1.3 H D AST 30 D ALT 37 D Alkaline Phosphatase 77 Total Protein 8.1 Albumin 4.6 Lipase 105 10/24/16 05:22 RBC 4.84 MCV 92.5 MCHC 34.3 RDW 13.3 MPV 9.3 Neutrophils % 82.1 Lymphocytes % 12.9 D Monocytes % 4.4 Eosinophils % 0.0 Basophils % 0.6 - RADIOLOGY Radiology Studies Ordered: Category Date Time Status ABDOMEN & PELVIS CT W/O CONTR [CT] Stat CT Scan 10/24/16 07:37 Ordered - Medications Given in the ED: ED Medications Discontinued Medications Generic Name Dose Route Start Last Admin Trade Name Freq PRN Reason Stop Dose Admin Hydromorphone HCl 1 mg 10/24/16 05:04 10/24/16 06:25 Dilaudid Injection - IVPUSH 10/24/16 05:05 1 mg ONCE ONE Administration Sodium Chloride 1,000 mls @ 1,000 mls/hr 10/24/16 05:04 10/24/16 06:25 Normal Saline - IV 10/24/16 06:03 1,000 mls/hr ASDIR STA Administration Ondansetron HCl 4 mg 10/24/16 05:04 10/24/16 06:25 Zofran Injection IVPUSH 10/24/16 05:05 4 mg ONCE STA Administration Medical Decision Making - Medical Decision Making 10/24/16 07:45 Received signout on this 51-year-old male with history of diverticulosis and recent admission for abdominal discomfort with nausea/vomiting, of note is postop day 7 now of vascular stent placement. CT on prior admission showed no evidence of infection, he was discharged without antibiotics. He presents last night after having episode of nausea/vomiting/abdominal pain after eating fish, has been constipated for 3 days. Labs notable for white count of 12, slight dehydration with elevated BUN, and lactate of 2.6. Patient was given IV fluids and pain medication and antiemetic, plan was to reassess and recheck lactate. Given the areas of tenderness and known diverticulosis, we'll perform noncontrast CT to rule out any acute inflammatory process. Will give Pepcid given the likely etiology of gastritis (epigastric pain, nausea/vomiting), will give Reglan in the setting of recent constipation and questionable ileus, will continue IV fluids, and then repeat lactate and reassess the patient. 10/24/16 13:48 Some delay in obtaining CT reading. CT shows no acute pathology. Lactate is now normal. Patient feels markedly improved after Pepcid, tolerating by mouth, abdomen benign. Agrees with discharge plan, will follow-up with GI. Understands return criteria. *DC/Admit/Observation/Transfer Diagnosis at time of Disposition: Abdominal pain Diverticulosis Qualifiers: Diverticulosis site: unspecified location Diverticulosis bleeding: diverticulosis without bleeding Qualified Code(s): K57.90 - Diverticulosis of intestine, part unspecified, without perforation or abscess without bleeding - Discharge Dispostion Disposition: HOME Condition at time of disposition: Improved - Prescriptions Prescriptions: Ibuprofen 800 mg PO TID #30 tablet Ondansetron [Zofran *Odt*] 4 mg SL TID #30 od.tablet - Referrals Referrals: Hardeep Marin MD [Staff Physician] - Claudio Lee MD [Primary Care Provider] - - Patient Instructions Printed Discharge Instructions: DI for Diverticulosis, DI for Dyspepsia Additional Instructions: Activity as tolerated. Stay hydrated. Advance diet as tolerated, avoiding dairy , spicy or fatty foods, caffeine and alcohol. A CAT scan shows no acute abnormalities. Your symptoms may be due to gastritis/ stomach inflammation Continue your medications as previously prescribed by your physician. Take Pecid 20mg twice daily for 5-7 days, this is available over the counter. You should follow up with your primary doctor and GI specialist as soon as possible regarding today's emergency department visit. Return to the emergency department for any new or concerning symptoms, particularly persistent or worsening pain, fevers or chills, bloody vomit or stool. - Post Discharge Activity
[2016-10-24] MEDS ORDERED: METOCLOPRAMIDE HCL INJECTION 10 MG/2 ML VIAL ONE (08:21)
[2016-10-24 09:15] LABS: URINE APPEARANCE CLEAR; URINE BILIRUBIN NEGATIVE (NEGATIVE); URINE BLOOD NEGATIVE (NEGATIVE); URINE COLOR STRAW; URINE GLUCOSE (UA) NEGATIVE (NEGATIVE); URINE KETONE 1+ (NEGATIVE); URINE LEUK ESTERASE NEGATIVE (NEGATIVE); URINE NITRITE NEGATIVE (NEGATIVE); URINE PROTEIN NEGATIVE (NEGATIVE); URINE UROBILINOGEN NEGATIVE E.U./dl (0.2-1.0)
--- NOTE | 2016-10-24 11:29 | EKG ---
Test Reason : Blood Pressure : / mmHG Vent. Rate : 064 BPM Atrial Rate : 064 BPM P-R Int : 160 ms QRS Dur : 092 ms QT Int : 458 ms P-R-T Axes : 069 068 076 degrees QTc Int : 472 ms NORMAL SINUS RHYTHM NORMAL ECG WHEN COMPARED WITH ECG OF 21-OCT-2016 11:37, NO SIGNIFICANT CHANGE WAS FOUND Confirmed by BERTHA BAUMANN MD ([id number]) on 10/24/2016 11:28:55 AM Referred By: Confirmed By:BERTHA BAUMANN MD
[2016-10-24 14:39] VITALS: BP 132/83; PULSE 87; TEMP 98
== END 2016-10-24 14:39 | disposition home or self-care (01) ==
LOC: JER 04:45
PROC: 3E033GC Introduction of Other Therapeutic Substance into Peripheral Vein, Percutaneous Approach (ICD-10-PCS; principal; 2016-10-24)
PROC: 3E033NZ Introduction of Analgesics, Hypnotics, Sedatives into Peripheral Vein, Percutaneous Approach (ICD-10-PCS; 2016-10-24)
PROC: 3E033GC Introduction of Other Therapeutic Substance into Peripheral Vein, Percutaneous Approach (ICD-10-PCS; 2016-10-24)
DX: K57.90 Diverticulosis of intestine, part unspecified, without perforation or abscess without bleeding (principal); I73.89 Other specified peripheral vascular diseases; E78.5 Hyperlipidemia, unspecified
CPT/HCPCS: 36415; 74176-TC; 80053; 81003; 83605; 83690; 83735; 85025; 85610; 87040; 87086; 93005; 93010; 96365; 96375; 99283-25

== ENCOUNTER 2016-12-19 07:51 | Inpatient (IN) | payer OTHER ==
[2016-12-19 08:01] VITALS: BMI 26.6
[2016-12-19] MEDS ORDERED: morphine CARPU-JECT 4 MG/1 ML DISP.SYRIN IVPUSH ONE (08:33)
[2016-12-19] MEDS ORDERED: ONDANSETRON 4 MG/2 ML VIAL IVPUSH ONE (08:33)
--- NOTE | 2016-12-19 08:42 | PDOC ---
History of Present Illness - General Chief Complaint: Pain Stated Complaint: ABD PAIN Time Seen by Provider: 12/19/16 08:11 History Source: Patient - History of Present Illness Timing/Duration: reports: getting worse Quality: reports: severe Abdominal Pain Onset Location: reports: LUQ, LLQ Past History - Past Medical History Allergies/Adverse Reactions: Allergies Allergy/AdvReac Type Severity Reaction Status Date / Time No Known Drug Allergies Allergy Verified 12/19/16 08:01 Home Medications: Ambulatory Orders Aspirin [ASA -] 81 mg PO DAILY 05/30/15 Zolpidem Tartrate [Ambien] 10 mg PO PRN PRN 07/02/15 Amlodipine Besylate [Norvasc -] 5 mg PO DAILY #30 tablet 10/22/16 Clopidogrel Bisulfate [Plavix -] 75 mg PO DAILY 10/22/16 FENTANYL 50mcg PATCH [DURAGESIC 50mcg PATCH -] 1 adh.patch TD Q3D 10/22/16 Oxycodone HCl 10 mg PO Q8H PRN 10/22/16 Pantoprazole Sodium [Protonix -] 40 mg PO DAILY 10/22/16 Paroxetine HCl [Paxil -] 10 mg PO DAILY 10/22/16 Rosuvastatin Calcium [Crestor] 1 tab PO HS 10/22/16 Ibuprofen 800 mg PO TID #30 tablet 10/24/16 Ondansetron [Zofran *Odt*] 4 mg SL TID #30 od.tablet 10/24/16 Anemia: No Cardiac Disorders: Yes GI Disorders: Yes (Diverticulitis) Disorders: Yes Hypercholesterolemia: Yes Kidney Stones: Yes Suicide Attempt (Hx): No - Family Disease History Family Disease History: Other: Mother (dvt) - Immunization History Immunization Up to Date: No - Psycho/Social/Smoking Cessation Hx Anxiety: No Suicidal Ideation: No Smoking Status: Yes Smoking History: Never smoked Have you smoked in the past 12 months: No Number of Cigarettes Smoked Daily: 20 If you are a former smoker, when did you quit?: 4 MOTHS AGO 'Breaking Loose' booklet given: 07/02/15 Hx Alcohol Use: No Drug/Substance Use Hx: No Substance Use Type: None Hx Substance Use Treatment: No Review of Systems - Review of Systems Constitutional: No: Chills, Fever Cardiac (ROS): No: Chest Pain ABD/GI: Yes: Nausea, Vomiting. No: Diarrhea : No: Dysuria, Discharge, Flank Pain, Hematuria *Physical Exam - Vital Signs Last Vital Signs Temp Pulse Resp BP Pulse Ox 98.3 F 60 20 196/105 99 12/19/16 07:58 12/19/16 07:58 12/19/16 07:58 12/19/16 07:58 12/19/16 07:58 - Physical Exam General Appearance: Yes: Appropriately Dressed, Severe Distress HEENT: positive: Normal Voice Neck: positive: Supple Respiratory/Chest: negative: Respiratory Distress Gastrointestinal/Abdominal: positive: Tender (to LUQ and LLQ), Soft Musculoskeletal: negative: CVA Tenderness Integumentary: positive: Dry, Warm Neurologic: positive: Fully Oriented, Alert, Normal Mood/Affect ED Treatment Course - LABORATORY CBC & Chemistry Diagram: 12/19/16 08:30 12/19/16 08:30 - RADIOLOGY Radiology Studies Ordered: Category Date Time Status ABDOMEN & PELVIS CT WITH CONTR [CT] Stat CT Scan 12/19/16 08:34 Ordered Medical Decision Making - Medical Decision Making 12/19/16 08:38 Patient is a 51-year-old male, history of diverticulitis usually medically managed, PAD, status post bilateral leg stents, hyperlipidemia, nephrolithiasis , sspsis of unclear etiology, p/w severe L sided abdominal pain that started yesterday associated with numerous episode of nausea, vomiting. Per patient, symptoms similar to his diverticulitis. No change in bowel movements, fever or chills. Patient requesting 2 mg IV Dilaudid specifically as he gets nauseous with any other pain meds per patient. Of note, recent CTs done in ED has been negative for diverticulitis See exam R/o diverticulitis Appears uncomfortable in ED but stable w/ ttp to L upper and lower quad, no CVAT -pain control -labs -CT -dispo pending 12/19/16 11:33 CT w/ acute diverticulitis without abscess/perf. Wbc of 16. IV abx in progress. Will admit and get GI c/s 12/19/16 12:[address] Hartley. C/s to Dr Holbrook placed *DC/Admit/Observation/Transfer Diagnosis at time of Disposition: Diverticulitis Qualifiers: Diverticulitis site: large intestine Diverticulitis bleeding: without bleeding Diverticulitis complication: without perforation or abscess Qualified Code(s): K57.32 - Diverticulitis of large intestine without perforation or abscess without bleeding - Discharge Dispostion Condition at time of disposition: Fair Admit: Yes - Referrals Referrals: Claudio Lee MD [Primary Care Provider] -
[2016-12-19] MEDS ORDERED: morphine CARPU-JECT 2 MG/1 ML DISP.SYRIN ONE (08:44)
[2016-12-19] MEDS ORDERED: ONDANSETRON 4 MG/2 ML VIAL ONE (08:45)
[2016-12-19 08:53] LABS: BASOPHIL 0.9 % (0-2.0); EOSINOPHIL 0.6 % (0-4.5); MCH 31.3 pg (25.7-33.7); MCHC 34.1 g/dl (32.0-35.9); MEAN CELL VOLUME 91.8 fl (80-96); MEAN PLT VOLUME 8.5 fl (7.5-11.1); NEUTROPHILS 72.3 % (42.8-82.8); PLATELET COUNT 223 K/MM3 (134-434); RDW 13.4 % (11.9-15.9); WHITE BLOOD COUNT 16.4 K/mm3 (4.0-10.0)
[2016-12-19] MEDS ORDERED: HYDROmorphone HCL CARPU-JECT 2 MG/1 ML DISP.SYRIN IVPB ONE ×2 (09:21→11:32)
[2016-12-19] MEDS ORDERED: HYDROmorphone HCL CARPU-JECT 1 MG/1 ML DISP.SYRIN ONE ×2 (09:22→11:56)
[2016-12-19 09:26] LABS: ALBUMIN 4.1 g/dl (3.4-5.0); ANION GAP 13 (8-16); CALCIUM 9.1 mg/dL (8.5-10.1); CO2 19 mmol/L (21-32); GLUCOSE,RANDOM 149 mg/dL (74-106)
[2016-12-19 09:29] LABS: ALK PHOS 78 U/L (45-117); BILIRUBIN,TOTAL 0.8 mg/dL (0.2-1.0); COCKROFT - GAULT 91.74; CREATININE 1.1 mg/dL (0.7-1.3); SGOT/AST 28 U/L (15-37); SGPT/ALT 33 U/L (12-78); TOT PROT 7.4 g/dl (6.4-8.2)
--- NOTE | 2016-12-19 09:43 | PDOC ---
*Physical Exam - Vital Signs Last Vital Signs Temp Pulse Resp BP Pulse Ox 98.3 F 60 20 196/105 99 12/19/16 07:58 12/19/16 07:58 12/19/16 07:58 12/19/16 07:58 12/19/16 07:58 ED Treatment Course - LABORATORY CBC & Chemistry Diagram: 12/21/16 07:35 12/21/16 07:10 - ADDITIONAL ORDERS Additional order review: Laboratory Results 12/19/16 08:30 Sodium 137 Potassium 3.3 L Chloride 105 Carbon Dioxide 19 L Anion Gap 13 BUN 28 H D Creatinine 1.1 Creat Clearance w eGFR > 60 Random Glucose 149 H Calcium 9.1 Total Bilirubin 0.8 D AST 28 ALT 33 Alkaline Phosphatase 78 Total Protein 7.4 Albumin 4.1 12/19/16 08:30 RBC 4.68 MCV 91.8 MCHC 34.1 RDW 13.4 MPV 8.5 Neutrophils % 72.3 Lymphocytes % 19.0 D Monocytes % 7.2 Eosinophils % 0.6 D Basophils % 0.9 - Medications Given in the ED: ED Medications Discontinued Medications Generic Name Dose Route Start Last Admin Trade Name Freq PRN Reason Stop Dose Admin Hydromorphone HCl 1 mg 12/19/16 09:21 12/19/16 09:23 Dilaudid Injection - IVPB 12/19/16 09:22 1 mg ONCE ONE Administration Morphine Sulfate 2 mg 12/19/16 08:33 12/19/16 08:45 Morphine Injection - IVPUSH 12/19/16 08:34 2 mg ONCE ONE Administration Ondansetron HCl 4 mg 12/19/16 08:33 12/19/16 08:45 Zofran Injection IVPUSH 12/19/16 08:34 4 mg ONCE ONE Administration Medical Decision Making - Medical Decision Making 12/19/16 09:42 Patient seen and evaluated with the nurse practitioner. I agree with the overall evaluation, assessment, and management with the following summary of visit: 51-year-old male with acute on chronic abdominal complaints, managed on opiates at home, presents with abdominal pain with vomiting. Afebrile. Actively retching Rule out acute process in the abdomen, will check lab/urinalysis/CAT scan. IV fluid hydration, antiemetics, pain medications only as needed. *DC/Admit/Observation/Transfer Diagnosis at time of Disposition: Diverticulitis Qualifiers: Diverticulitis site: large intestine Diverticulitis bleeding: without bleeding Diverticulitis complication: without perforation or abscess Qualified Code(s): K57.32 - Diverticulitis of large intestine without perforation or abscess without bleeding - Discharge Dispostion Disposition: HOME Condition at time of disposition: Fair - Prescriptions
[2016-12-19] MEDS ORDERED: METRONIDAZOLE 500 MG PREMIXED 100 ML IVPB ONE ×2 (11:32→11:56)
[2016-12-19] MEDS ORDERED: CIPROFLOXACIN 400 MG/D5W 200 ML IVPB ONE (11:32)
[2016-12-19] MEDS ORDERED: amLODIPine BESYLATE 5 MG TABLET (FP) PO ONE ×2 (15:10→18:15)
[2016-12-19] MEDS ORDERED: DEXTROSE 5%-0.45% SALINE 1,000 ML IV SCH (15:15)
--- NOTE | 2016-12-19 18:21 | CONSULT ---
Consult Consult Specialty:: Surgery Reason for Consultation:: Abdominal pain - History of Present Illness History of Present Illness: 51 male with multiple episodes of recurrent descending colon/sigmoid diverticulitis treated with antibiotics Presents again with LLQ pain Denies fevers/chills Had multiple discussions on multiple visits about making an appointment to see a colorectal surgeon for an elective colectomy Never followed up with any surgeon despite explaining that he could perforate and go into septic shock States that now he will follow up with a surgeon - History Source History Provided By: Patient Limitations to Obtaining History: No Limitations - Past Medical History Cardio/Vascular: Yes: Hyperlipdemia. No: AFIB Gastrointestinal: Yes: Diverticulitis Renal/: Yes: Hematuria, UTI - Past Surgical History Past Surgical History: Yes: Stent (Femoral) - Alcohol/Substance Use Hx Alcohol Use: No - Smoking History Smoking history: Never smoked Have you smoked in the past 12 months: No Aproximately how many cigarettes per day: 20 If you are a former smoker, when did you quit?: 4 MOTHS AGO Home Medications - Allergies Allergies/Adverse Reactions: Allergies Allergy/AdvReac Type Severity Reaction Status Date / Time No Known Drug Allergies Allergy Verified 12/19/16 08:01 - Home Medications Home Medications: Ambulatory Orders Aspirin [ASA -] 81 mg PO DAILY 05/30/15 Zolpidem Tartrate [Ambien] 10 mg PO PRN PRN 07/02/15 Amlodipine Besylate [Norvasc -] 5 mg PO DAILY #30 tablet 10/22/16 Clopidogrel Bisulfate [Plavix -] 75 mg PO DAILY 10/22/16 FENTANYL 50mcg PATCH [DURAGESIC 50mcg PATCH -] 1 adh.patch TD Q3D 10/22/16 Oxycodone HCl 10 mg PO Q8H PRN 10/22/16 Pantoprazole Sodium [Protonix -] 40 mg PO DAILY 10/22/16 Paroxetine HCl [Paxil -] 20 mg PO DAILY 10/22/16 Rosuvastatin Calcium [Crestor] 1 tab PO HS 10/22/16 Ondansetron [Zofran *Odt*] 4 mg SL TID #30 od.tablet 10/24/16 Family Disease History - Family Disease History Family History: Unremarkable Review of Systems - Review of Systems Constitutional: denies: Chills, Fever HENT: reports: No Symptoms Neck: reports: No Symptoms Cardiovascular: denies: Chest Pain Respiratory: denies: Cough Gastrointestinal: reports: Abdominal Pain. denies: Diarrhea, Nausea Genitourinary: reports: No Symptoms Neurological: denies: Change in LOC Pain Intensity: 6 Physical Exam Vital Signs: Vital Signs Temperature 97.9 F 12/19/16 16:31 Pulse Rate 59 L 12/19/16 16:31 Respiratory Rate 18 12/19/16 16:31 Blood Pressure 142/81 12/19/16 16:31 O2 Sat by Pulse Oximetry (%) 96 12/19/16 16:31 Constitutional: Yes: Calm Eyes: Yes: WNL HENT: Yes: WNL Neck: Yes: Trachea Midline Cardiovascular: Yes: Regular Rate and Rhythm Respiratory: Yes: Regular Gastrointestinal: Yes: Soft, Tenderness (LLQ). No: Tenderness, Rebound Extremities: Yes: WNL Neurological: Yes: Alert, Oriented Labs: CBC, BMP 12/19/16 08:30 12/19/16 08:30 Imaging - Results Cat Scan: Report Reviewed, Image Reviewed Problem List - Problems (1) Diverticulitis of colon Code(s): K57.32 - DVTRCLI OF LG INT W/O PERFORATION OR ABSCESS W/O BLEEDING Assessment/Plan Recurrent left sided diverticulitis Had many discussions with the patient about the need for an elective colectomy before he perforates Never followed up States that now he will Gave him the contact info for Dr Hermes Walls and Dr Brewer Go to follow up with for an elective colectomy NPO Antibiotics Clears when pain improves and WBC normalizes
[2016-12-19] MEDS ORDERED: ONDANSETRON 4 MG/2 ML VIAL IVPB PRN (18:44)
[2016-12-19] MEDS: HYDROmorphone HCL CARPU-JECT 1 MG/1 ML DISP.SYRIN IVPB PRN (19:43)
--- NOTE | 2016-12-19 21:14 | CON.GI ---
Consult Consult Specialty:: GI Referred by:: Dr Hartley Reason for Consultation:: abdominal pain - History of Present Illness Chief Complaint: LLQ pain for the past 24 hours History of Present Illness: 51 M with severe PAD s/p bilateral LE stents, former smoker stopped 1 1/2 years ago, HLD, admitted with LLQ pain. He tells me that this is his 11th episode of diverticulitis. He states the problem has has kept him out of work for the past year. He also has a h/o HLD and kidney stones. - History Source History Provided By: Patient, Medical Record Limitations to Obtaining History: No Limitations - Past Medical History Cardio/Vascular: Yes: Hyperlipdemia. No: AFIB Gastrointestinal: Yes: Diverticulitis Renal/: Yes: Hematuria, UTI - Past Surgical History Past Surgical History: Yes: Stent (Femoral) - Alcohol/Substance Use Hx Alcohol Use: No - Smoking History Smoking history: Never smoked Have you smoked in the past 12 months: No Aproximately how many cigarettes per day: 20 If you are a former smoker, when did you quit?: 4 MOTHS AGO Home Medications - Allergies Allergies/Adverse Reactions: Allergies Allergy/AdvReac Type Severity Reaction Status Date / Time No Known Drug Allergies Allergy Verified 12/19/16 08:01 - Home Medications Home Medications: Ambulatory Orders Aspirin [ASA -] 81 mg PO DAILY 05/30/15 Zolpidem Tartrate [Ambien] 10 mg PO PRN PRN 07/02/15 Amlodipine Besylate [Norvasc -] 5 mg PO DAILY #30 tablet 10/22/16 Clopidogrel Bisulfate [Plavix -] 75 mg PO DAILY 10/22/16 FENTANYL 50mcg PATCH [DURAGESIC 50mcg PATCH -] 1 adh.patch TD Q3D 10/22/16 Oxycodone HCl 10 mg PO Q8H PRN 10/22/16 Pantoprazole Sodium [Protonix -] 40 mg PO DAILY 10/22/16 Paroxetine HCl [Paxil -] 20 mg PO DAILY 10/22/16 Rosuvastatin Calcium [Crestor] 1 tab PO HS 10/22/16 Ondansetron [Zofran *Odt*] 4 mg SL TID #30 od.tablet 10/24/16 Physical Exam-GI Vital Signs: Vital Signs Temperature 97.9 F 12/19/16 18:41 Pulse Rate 57 L 05/24/17 18:41 Respiratory Rate 18 12/19/16 18:41 Blood Pressure 147/71 12/19/16 18:41 O2 Sat by Pulse Oximetry (%) 96 12/19/16 18:41 Constitutional: Yes: Well Nourished, Calm HENT: Yes: Normocephalic Neck: Yes: Supple Cardiovascular: Yes: Regular Rate and Rhythm Respiratory: Yes: CTA Bilaterally Gastrointestinal Inspection: Yes: WNL ...Auscultate: Yes: Normoactive Bowel Sounds ...Palpate: Yes: Mass (LLQ (likely inflammatory mass)), Soft, Tenderness (LLQ) Labs: CBC, BMP 12/19/16 08:30 12/19/16 08:30 Hepatic Panel Total Bilirubin 0.8 mg/dL (0.2-1.0) D 12/19/16 08:30 AST 28 U/L (15-37) 12/19/16 08:30 ALT 33 U/L (12-78) 12/19/16 08:30 Alkaline Phosphatase 78 U/L (45-117) 12/19/16 08:30 Albumin 4.1 g/dl (3.4-5.0) 12/19/16 08:30 Imaging - Results Cat Scan: Report Reviewed (severe diverticulosis with acute uncomplicated diverticulitis) Assessment/Plan 51 M with above history admitted with a recurrent episode of diverticulitis. He had a colonoscopy last year that was negative for neoplasm. (Lantin) Rec: NPO IVF IV AbRx 4-8 weeks after resolution, recommend colon resection
[2016-12-20] MEDS ORDERED: CLOPIDOGREL BISULFATE 75 MG TABLET (FP) PO SCH (10:00)
--- NOTE | 2016-12-20 11:11 | HP ---
Admitting History and Physical - Primary Care Physician PCP: Barb Hartley - Admission Chief Complaint: ACUTE DIVERTICULITIS History of Present Illness: 51 male with multiple episodes of recurrent descending colon/sigmoid diverticulitis treated with antibiotics Presents again with LLQ pain Denies fevers/chills Former tobacco use quit 1 year ago Will need colon resection History Source: Patient, Medical Record - Past Medical History Cardiovascular: Yes: Hyperlipdemia. No: AFIB Gastrointestinal: Yes: Diverticulitis Renal/: Yes: Hematuria, UTI - Past Surgical History Past Surgical History: Yes: Stent (Femoral) - Smoking History Smoking history: Never smoked Have you smoked in the past 12 months: No Aproximately how many cigarettes per day: 20 If you are a former smoker, when did you quit?: 4 MOTHS AGO - Alcohol/Substance Use Hx Alcohol Use: No Home Medications - Allergies Allergies/Adverse Reactions: Allergies Allergy/AdvReac Type Severity Reaction Status Date / Time No Known Drug Allergies Allergy Verified 12/19/16 08:01 - Home Medications Home Medications: Ambulatory Orders Aspirin [ASA -] 81 mg PO DAILY 05/30/15 Zolpidem Tartrate [Ambien] 10 mg PO PRN PRN 07/02/15 Amlodipine Besylate [Norvasc -] 5 mg PO DAILY #30 tablet 10/22/16 Clopidogrel Bisulfate [Plavix -] 75 mg PO DAILY 10/22/16 FENTANYL 50mcg PATCH [DURAGESIC 50mcg PATCH -] 1 adh.patch TD Q3D 10/22/16 Oxycodone HCl 10 mg PO Q8H PRN 10/22/16 Pantoprazole Sodium [Protonix -] 40 mg PO DAILY 10/22/16 Paroxetine HCl [Paxil -] 20 mg PO DAILY 10/22/16 Rosuvastatin Calcium [Crestor] 1 tab PO HS 10/22/16 Ondansetron [Zofran *Odt*] 4 mg SL TID #30 od.tablet 10/24/16 Review of Systems - Review of Systems Constitutional: reports: Loss of Appetite, Weakness Eyes: reports: No Symptoms HENT: reports: No Symptoms Neck: reports: No Symptoms Cardiovascular: reports: No Symptoms Respiratory: reports: No Symptoms Gastrointestinal: reports: Abdominal Pain Genitourinary: reports: No Symptoms Musculoskeletal: reports: No Symptoms Integumentary: reports: No Symptoms Neurological: reports: No Symptoms Endocrine: reports: No Symptoms Hematology/Lymphatic: reports: No Symptoms Psychiatric: reports: No Symptoms Physical Examination Vital Signs: Vital Signs Temperature 98.4 F 12/20/16 06:00 Pulse Rate 54 L 12/20/16 06:00 Respiratory Rate 20 12/20/16 06:00 Blood Pressure 125/68 12/20/16 06:00 O2 Sat by Pulse Oximetry (%) 96 12/19/16 18:41 Constitutional: Yes: Mild Distress Eyes: Yes: WNL HENT: Yes: WNL Neck: Yes: WNL Cardiovascular: Yes: WNL Respiratory: Yes: WNL Gastrointestinal: Yes: Tenderness Renal/: Yes: WNL Musculoskeletal: Yes: Muscle Weakness Edema: No Peripheral Pulses WNL: Yes Integumentary: Yes: WNL Wound/Incision: Yes: Clean/Dry Neurological: Yes: WNL ...Motor Strength: WNL Psychiatric: Yes: WNL Problem List - Problems (1) Diverticulitis of colon Code(s): K57.32 - DVTRCLI OF LG INT W/O PERFORATION OR ABSCESS W/O BLEEDING (2) Abdominal pain Code(s): R10.9 - UNSPECIFIED ABDOMINAL PAIN (3) Smoking greater than 25 pack years Assessment/Plan: quit 1 year ago Code(s): F17.210 - NICOTINE DEPENDENCE, CIGARETTES, UNCOMPLICATED Assessment/Plan iv abx ivf clear diet colorectal consult
--- NOTE | 2016-12-20 11:59 | PN ---
Progress Note (short form) - Note Progress Note: No acute events Pain significantly improved On clears Vital Signs Period Temp Pulse Resp BP Sys/Springer Pulse Ox Last 24 Hr 97.9 F-98.4 F 54-69 18-20 114-147/68-81 96-97 Abd soft, LLQ tenderness but improved WBC OOB Antibiotics Explained again the need to follow up with a colorectal surgeon for resection after discharged He again agrees Problem List - Problems (1) Diverticulitis of colon Code(s): K57.32 - DVTRCLI OF LG INT W/O PERFORATION OR ABSCESS W/O BLEEDING
[2016-12-20 12:09] LABS: CALCIUM 8.7 mg/dL (8.5-10.1); COCKROFT - GAULT 126.15; CREATININE 0.8 mg/dL (0.7-1.3); MAGNESIUM 2.2 mg/dL (1.8-2.4)
--- NOTE | 2016-12-20 14:13 | CONSULT ---
Consult Consult Specialty:: Nephrology Reason for Consultation:: azotemia - History of Present Illness Chief Complaint: abdominal pain History of Present Illness: Pt is a 51 year old male with pmhx of PVD, nephrolothiasis and diverticulitis who presents to the ER with abdominal pain. He was found to be azotemic and I was called to evaluate him. He denies dysuria or hematuria. He denies nsaid use. He complained of decreased appetite as well. He denies history of CKD. He does however have history of nephrolithiasis. He is awake and alert. He says he feels better today. - History Source History Provided By: Patient, Medical Record - Past Medical History Cardio/Vascular: Yes: Hyperlipdemia, Other (PVD) Gastrointestinal: Yes: Diverticulitis Renal/: Yes: Hematuria, UTI - Past Surgical History Past Surgical History: Yes: Stent (Femoral) - Alcohol/Substance Use Hx Alcohol Use: No - Smoking History Smoking history: Never smoked Have you smoked in the past 12 months: No Aproximately how many cigarettes per day: 20 If you are a former smoker, when did you quit?: 4 MOTHS AGO Home Medications - Allergies Allergies/Adverse Reactions: Allergies Allergy/AdvReac Type Severity Reaction Status Date / Time No Known Drug Allergies Allergy Verified 12/19/16 08:01 - Home Medications Home Medications: Ambulatory Orders Aspirin [ASA -] 81 mg PO DAILY 05/30/15 Zolpidem Tartrate [Ambien] 10 mg PO PRN PRN 07/02/15 Amlodipine Besylate [Norvasc -] 5 mg PO DAILY #30 tablet 10/22/16 Clopidogrel Bisulfate [Plavix -] 75 mg PO DAILY 10/22/16 FENTANYL 50mcg PATCH [DURAGESIC 50mcg PATCH -] 1 adh.patch TD Q3D 10/22/16 Oxycodone HCl 10 mg PO Q8H PRN 10/22/16 Pantoprazole Sodium [Protonix -] 40 mg PO DAILY 10/22/16 Paroxetine HCl [Paxil -] 20 mg PO DAILY 10/22/16 Rosuvastatin Calcium [Crestor] 1 tab PO HS 10/22/16 Ondansetron [Zofran *Odt*] 4 mg SL TID #30 od.tablet 10/24/16 Family Disease History - Family Disease History Family History: Denies Review of Systems - Review of Systems Constitutional: reports: Chills, Fever Eyes: reports: No Symptoms HENT: reports: No Symptoms Neck: reports: No Symptoms Cardiovascular: reports: No Symptoms Respiratory: reports: No Symptoms Gastrointestinal: reports: Abdominal Pain Genitourinary: reports: No Symptoms Musculoskeletal: reports: No Symptoms Integumentary: reports: No Symptoms Neurological: reports: No Symptoms Endocrine: reports: No Symptoms Hematology/Lymphatic: reports: No Symptoms Psychiatric: reports: No Symptoms Physical Exam Vital Signs: Vital Signs Temperature 98.2 F 12/20/16 09:00 Pulse Rate 60 12/20/16 09:00 Respiratory Rate 20 12/20/16 09:00 Blood Pressure 151/78 12/20/16 09:00 O2 Sat by Pulse Oximetry (%) 96 12/20/16 09:00 Constitutional: Yes: Calm Eyes: Yes: Conjunctiva Clear HENT: Yes: Atraumatic Neck: Yes: Supple Cardiovascular: Yes: S1, S2 Respiratory: Yes: CTA Bilaterally Gastrointestinal: Yes: Tenderness Musculoskeletal: Yes: WNL Edema: No Neurological: Yes: Oriented Psychiatric: Yes: Oriented Labs: CBC, BMP 12/20/16 11:20 Laboratory Tests 12/19/16 12/19/16 12/20/16 08:30 08:30 11:20 WBC 16.4 H D RBC 4.68 Hgb 14.7 Hct 43.0 MCV 91.8 Plt Count 223 Sodium 137 141 Potassium 3.3 L 3.8 Chloride 105 106 Carbon Dioxide 19 L 27 D Anion Gap 13 8 BUN 28 H D 18 D Creatinine 1.1 0.8 D Creat Clearance w eGFR > 60 Magnesium 2.2 Total Bilirubin 0.8 D AST 28 ALT 33 Alkaline Phosphatase 78 Imaging - Results Cat Scan: Report Reviewed Problem List - Problems (1) Diverticulitis of colon Code(s): K57.32 - DVTRCLI OF LG INT W/O PERFORATION OR ABSCESS W/O BLEEDING (2) Abdominal pain Code(s): R10.9 - UNSPECIFIED ABDOMINAL PAIN (3) Dehydration Code(s): E86.0 - DEHYDRATION Assessment/Plan Current Medications Generic Name Dose Route Start Last Admin Trade Name Freq PRN Reason Stop Dose Admin Hydromorphone HCl 1 mg 12/19/16 18:43 12/19/16 19:43 Dilaudid Injection - IVPB 1 mg Q4H PRN Administration Dextrose/Sodium Chloride 1,000 mls @ 83 mls/hr 12/19/16 15:15 12/19/16 18:20 D5-1/2ns - IV 83 mls/hr ASDIR NICOLASA Administration Ondansetron HCl 4 mg 12/19/16 18:44 Zofran Injection IVPB Q6H PRN NAUSEA AND/OR VOMITING Impression 1. Azotemia 2. PAD 3. diverticulitis 4. hyperlipidemia 5. nephrolithiasis Plan - renal function is improving - cont with fluids, can change to 1/2 ns - repeat labs in am - check ultrasound of the kidneys and bladder - check ua Dr Santana
[2016-12-20] MEDS: SODIUM CHLORIDE 0.45% 1,000 ML IV SCH (16:37)
[2016-12-20] MEDS: HYDROmorphone HCL CARPU-JECT 1 MG/1 ML DISP.SYRIN IVPB PRN (18:27)
[2016-12-20] MEDS ORDERED: ZOLPIDEM TARTRATE 5 MG TABLET PO PRN (20:15)
[2016-12-20] MEDS ORDERED: ROSUVASTATIN CA 10 MG TABLET (FP) PO SCH (22:00)
[2016-12-20] MEDS ORDERED: ROSUVASTATIN CA 5 MG TABLET (FP) PO SCH ×2 (22:00)
[2016-12-21 02:48] LABS: URINE APPEARANCE CLEAR; URINE BILIRUBIN NEGATIVE (NEGATIVE); URINE BLOOD NEGATIVE (NEGATIVE); URINE COLOR LTYELLOW; URINE GLUCOSE (UA) NEGATIVE (NEGATIVE); URINE KETONE NEGATIVE (NEGATIVE); URINE LEUK ESTERASE NEGATIVE (NEGATIVE); URINE NITRITE NEGATIVE (NEGATIVE); URINE PROTEIN NEGATIVE (NEGATIVE); URINE UROBILINOGEN NEGATIVE E.U./dl (0.2-1.0)
[2016-12-21] MEDS: SODIUM CHLORIDE 0.45% 1,000 ML IV SCH (05:34)
--- NOTE | 2016-12-21 08:22 | PN ---
Progress Note (short form) - Note Progress Note: No acute events States pain almost fully resolved Tolerating clears WBC pending Vital Signs Period Temp Pulse Resp BP Sys/Springer Pulse Ox Last 24 Hr 97.9 F-98.6 F 56-64 18-20 111-151/59-78 96-96 Abd soft, minimal LLQ tenderness If WBC normalizes, patient remains afebrile and pain improves, can advance diet as tolerated Will follow will colorectal surgeon for elective colectomy Problem List - Problems (1) Diverticulitis of colon Code(s): K57.32 - DVTRCLI OF LG INT W/O PERFORATION OR ABSCESS W/O BLEEDING
[2016-12-21 08:51] LABS: BASOPHIL 0.3 % (0-2.0); EOSINOPHIL 2.6 % (0-4.5); MCH 32.1 pg (25.7-33.7); MCHC 34.4 g/dl (32.0-35.9); MEAN CELL VOLUME 93.3 fl (80-96); MEAN PLT VOLUME 8.7 fl (7.5-11.1); NEUTROPHILS 50.7 % (42.8-82.8); PLATELET COUNT 194 K/MM3 (134-434); RDW 13.2 % (11.9-15.9); WHITE BLOOD COUNT 7.3 K/mm3 (4.0-10.0)
[2016-12-21 09:10] LABS: CALCIUM 8.3 mg/dL (8.5-10.1); COCKROFT - GAULT 126.15; CREATININE 0.8 mg/dL (0.7-1.3)
--- NOTE | 2016-12-21 09:34 | CONSULT ---
Consult Consult Specialty:: Surgery Referred by:: Dr. Hartley Reason for Consultation:: recurrent diverticulitis - History of Present Illness Chief Complaint: abdominal pain History of Present Illness: Patient is a 51-year-old male, history of diverticulitis usually medically managed, PAD, status post bilateral leg stents, hyperlipidemia, nephrolithiasis , p/w severe L sided abdominal pain that started yesterday associated with numerous episode of nausea, vomiting. Per patient, symptoms similar to his diverticulitis. No change in bowel movements, fever or chills. States that he had attacks of diverticulitis almost every 2 months requiring ED visits and hospitalizations. Currently feels better with less pain and tolerating clear liquids - History Source History Provided By: Patient Limitations to Obtaining History: No Limitations - Past Medical History Cardio/Vascular: Yes: Hyperlipdemia, Other (PVD LE) Gastrointestinal: Yes: Diverticulitis Renal/: Yes: Hematuria, Renal Calculi, UTI - Past Surgical History Past Surgical History: Yes: Stent (Femoral) Additional Surgical History: Cystoscopy, ureteral stenting - Alcohol/Substance Use Hx Alcohol Use: No - Smoking History Smoking history: Never smoked Have you smoked in the past 12 months: No Aproximately how many cigarettes per day: 20 If you are a former smoker, when did you quit?: 4 MOTHS AGO Home Medications - Allergies Allergies/Adverse Reactions: Allergies Allergy/AdvReac Type Severity Reaction Status Date / Time No Known Drug Allergies Allergy Verified 12/19/16 08:01 - Home Medications Home Medications: Ambulatory Orders Aspirin [ASA -] 81 mg PO DAILY 05/30/15 Zolpidem Tartrate [Ambien] 10 mg PO PRN PRN 07/02/15 Amlodipine Besylate [Norvasc -] 5 mg PO DAILY #30 tablet 10/22/16 Clopidogrel Bisulfate [Plavix -] 75 mg PO DAILY 10/22/16 FENTANYL 50mcg PATCH [DURAGESIC 50mcg PATCH -] 1 adh.patch TD Q3D 10/22/16 Oxycodone HCl 10 mg PO Q8H PRN 10/22/16 Pantoprazole Sodium [Protonix -] 40 mg PO DAILY 10/22/16 Paroxetine HCl [Paxil -] 20 mg PO DAILY 10/22/16 Rosuvastatin Calcium [Crestor] 1 tab PO HS 10/22/16 Ondansetron [Zofran *Odt*] 4 mg SL TID #30 od.tablet 10/24/16 Physical Exam Vital Signs: Vital Signs Temperature 98.1 F 12/21/16 06:00 Pulse Rate 61 12/21/16 06:00 Respiratory Rate 20 12/21/16 06:00 Blood Pressure 111/59 12/21/16 06:00 O2 Sat by Pulse Oximetry (%) 96 12/20/16 21:00 Constitutional: Yes: Well Nourished, No Distress Eyes: Yes: Conjunctiva Clear HENT: Yes: Normocephalic Neck: Yes: Supple Cardiovascular: Yes: Regular Rate and Rhythm Respiratory: Yes: CTA Bilaterally Gastrointestinal: Yes: Soft, Tenderness (mild direct at LLQ and suprapubic regions) ...Rectal Exam: Yes: Deferred Labs: CBC, BMP 12/21/16 07:35 12/21/16 07:10 Imaging - Results Cat Scan: Report Reviewed (acute sigmoid diverticulitis), Image Reviewed Problem List - Problems (1) Diverticulitis of colon Assessment/Plan: Recurrent sigmoid diverticulitis Clinically improved May advance diet gradually Continue antibiotics Will likely need interval partial colectomy once inflammatory process subsides in 6 - 8 weeks to avoid recurrences and future more serious complication of diverticular disease Will discuss patient's plan of management with PMD and GI service Will follow up as OP in office Code(s): K57.32 - DVTRCLI OF LG INT W/O PERFORATION OR ABSCESS W/O BLEEDING (2) Abdominal pain Assessment/Plan: as above Code(s): R10.9 - UNSPECIFIED ABDOMINAL PAIN
[2016-12-21] MEDS ORDERED: PANTOPRAZOLE 40 MG TABLET (FP) PO SCH (10:00)
[2016-12-21] MEDS ORDERED: amLODIPine BESYLATE 5 MG TABLET (FP) PO SCH (10:00)
[2016-12-21] MEDS ORDERED: PARoxetine HCL 20 MG TABLET (FP) PO SCH (10:00)
[2016-12-21 10:18] VITALS: BP 136/75
--- NOTE | 2016-12-21 12:33 | PN ---
Progress Note, Physician History of Present Illness: Pt seen and examined at bedside. He is tolerating clears. He feels that the abdominal pain is improved. - Current Medication List Current Medications: Active Medications Amlodipine Besylate (Norvasc -) 5 mg PO DAILY [facility] Last Admin: 12/21/16 10:18 Dose: 5 mg Hydromorphone HCl (Dilaudid Injection -) 1 mg IVPB Q4H PRN Last Admin: 12/20/16 18:27 Dose: 1 mg Sodium Chloride (1/2 Normal Saline) 1,000 mls @ 75 mls/hr IV ASDIR [facility] Last Admin: 12/21/16 05:34 Dose: 75 mls/hr Ondansetron HCl (Zofran Injection) 4 mg IVPB Q6H PRN PRN Reason: NAUSEA AND/OR VOMITING Pantoprazole Sodium (Protonix -) 40 mg PO DAILY [facility] Last Admin: 12/21/16 10:18 Dose: 40 mg Paroxetine HCl (Paxil -) 20 mg PO DAILY [facility] Last Admin: 12/21/16 10:19 Dose: 20 mg Rosuvastatin Calcium (Crestor -) 5 mg PO HS NICOLASA Last Admin: 12/20/16 21:27 Dose: 5 mg Zolpidem Tartrate (Ambien -) 10 mg PO HS PRN Last Admin: 12/20/16 21:16 Dose: 10 mg - Objective Vital Signs: Vital Signs Temperature 98.1 F 12/21/16 10:00 Pulse Rate 56 L 12/21/16 10:00 Respiratory Rate 18 12/21/16 10:00 Blood Pressure 136/75 12/21/16 10:00 O2 Sat by Pulse Oximetry (%) 96 12/21/16 09:00 Constitutional: Yes: Calm Eyes: Yes: Conjunctiva Clear HENT: Yes: Atraumatic Neck: Yes: Supple Cardiovascular: Yes: S1, S2 Respiratory: Yes: CTA Bilaterally Gastrointestinal: Yes: Normal Bowel Sounds, Soft Genitourinary: Yes: WNL Musculoskeletal: Yes: WNL Edema: No Neurological: Yes: Oriented Psychiatric: Yes: Oriented Labs: CBC, BMP 12/21/16 07:35 12/21/16 07:10 Problem List - Problems (1) Diverticulitis of colon Code(s): K57.32 - DVTRCLI OF LG INT W/O PERFORATION OR ABSCESS W/O BLEEDING (2) Abdominal pain Code(s): R10.9 - UNSPECIFIED ABDOMINAL PAIN (3) Dehydration Code(s): E86.0 - DEHYDRATION Assessment/Plan Current Medications Generic Name Dose Route Start Last Admin Trade Name Freq PRN Reason Stop Dose Admin Amlodipine Besylate 5 mg 12/21/16 10:00 12/21/16 10:18 Norvasc - PO 5 mg DAILY NICOLASA Administration Hydromorphone HCl 1 mg 12/19/16 18:43 12/20/16 18:27 Dilaudid Injection - IVPB 1 mg Q4H PRN Administration Sodium Chloride 1,000 mls @ 75 mls/hr 12/20/16 14:30 12/21/16 05:34 1/2 Normal Saline IV 75 mls/hr ASDIR NICOLASA Administration Ondansetron HCl 4 mg 12/19/16 18:44 Zofran Injection IVPB Q6H PRN NAUSEA AND/OR VOMITING Pantoprazole Sodium 40 mg 12/21/16 10:00 12/21/16 10:18 Protonix - PO 40 mg DAILY NICOLASA Administration Paroxetine HCl 20 mg 12/21/16 10:00 12/21/16 10:19 Paxil - PO 20 mg DAILY NICOLASA Administration Rosuvastatin Calcium 5 mg 12/20/16 22:00 12/20/16 21:27 Crestor - PO 5 mg HS NICOLASA Administration Zolpidem Tartrate 10 mg 12/20/16 20:15 12/20/16 21:16 Ambien - PO 10 mg HS PRN Administration Laboratory Tests 12/21/16 02:34 Urine Color Ltyellow Urine Appearance Clear Urine pH 6.0 Ur Specific Finger 1.015 Urine Protein Negative Urine Glucose (UA) Negative Urine Ketones Negative Urine Blood Negative Urine Nitrite Negative Urine Bilirubin Negative Urine Urobilinogen Negative Ur Leukocyte Esterase Negative Impression 1. Azotemia 2. PAD 3. diverticulitis 4. hyperlipidemia 5. nephrolithiasis Plan - pt tolerating clears - can decrease fluids - encourage PO intake - renal ultrasound reviewed - stop fluids once pt is tolerating diet - outpt follow up - ua is negative Dr Santana
[2016-12-21 13:55] VITALS: PULSE 66; TEMP 98
--- NOTE | 2016-12-21 14:35 | PN ---
GI Progress Note Subjective: Feeling much better Tolerating full liquids No pain at this time - Objective Vital Signs: Vital Signs Temperature 98.0 F 12/21/16 13:53 Pulse Rate 66 12/21/16 13:53 Respiratory Rate 20 12/21/16 13:53 Blood Pressure 136/75 12/21/16 10:00 O2 Sat by Pulse Oximetry (%) 96 12/21/16 09:00 Constitutional: Well Nourished, No Distress HENT: Yes: Normocephalic Cardiovascular: Yes: Regular Rate and Rhythm Respiratory: Yes: CTA Bilaterally Gastrointestinal Inspection: Yes: WNL ...Auscultate: Yes: Normoactive Bowel Sounds ...Palpate: Yes: Soft, Tenderness ((mild) LLQ) ...Percussion: Yes: Dullness Labs: CBC, BMP 12/21/16 07:35 12/21/16 07:10 Assessment/Plan Recurrent diverticulitis resolving Dr Singh's note read and appreciated If diet tolerated can d/c with surgical f/u No need for repeat colon as one was done recently and negative for neoplasm po AbRx as outpatient
[2016-12-21] MEDS ORDERED: IBUPROFEN 600 MG TABLET (FP) PO PRN (16:02)
--- NOTE | 2016-12-21 16:09 | DS ---
Physical Examination Vital Signs: Vital Signs Temperature 98.0 F 12/21/16 13:53 Pulse Rate 66 12/21/16 13:53 Respiratory Rate 20 12/21/16 13:53 Blood Pressure 136/75 12/21/16 10:00 O2 Sat by Pulse Oximetry (%) 96 12/21/16 09:00 Constitutional: Yes: No Distress Eyes: Yes: WNL HENT: Yes: WNL Neck: Yes: WNL Cardiovascular: Yes: WNL Respiratory: Yes: WNL Gastrointestinal: Yes: WNL Renal/: Yes: WNL Musculoskeletal: Yes: WNL Extremities: Yes: WNL Edema: No Peripheral Pulses WNL: Yes Integumentary: Yes: WNL Wound/Incision: Yes: Clean/Dry Neurological: Yes: WNL ...Motor Strength: WNL Psychiatric: Yes: WNL Labs: CBC, BMP 12/21/16 07:35 12/21/16 07:10 Discharge Summary Reason For Visit: DIVERTICULITIS OF INTESTINE Current Active Problems Diverticulitis (Acute) Diverticulitis of colon (Acute) Procedures: Principal: CT ABD Other Procedures: LABS/XRAYS Hospital Course: ADMITTED FOR ACUTE DIVERTICULITIS, IV ABX AND IV FLUIDS. IMPROVED WILL NEED COLON RESECTION IN 8 WEEKS, WILL NEED TO F/U WITH SURGERY OUTPATIENT. Condition: Fair - Instructions Diet, Activity, Other Instructions: LIQUID DIET, ADVANCE TOLERATED, SURGERY F/U OUTPATIENT. Referrals: Claudio Lee MD [Primary Care Provider] - Disposition: HOME - Home Medications Comprehensive Discharge Medication List: Ambulatory Orders Aspirin [ASA -] 81 mg PO DAILY 05/30/15 Zolpidem Tartrate [Ambien] 10 mg PO PRN PRN 07/02/15 Amlodipine Besylate [Norvasc -] 5 mg PO DAILY #30 tablet 10/22/16 Clopidogrel Bisulfate [Plavix -] 75 mg PO DAILY 10/22/16 FENTANYL 50mcg PATCH [DURAGESIC 50mcg PATCH -] 1 adh.patch TD Q3D 10/22/16 Oxycodone HCl 10 mg PO Q8H PRN 10/22/16 Pantoprazole Sodium [Protonix -] 40 mg PO DAILY 10/22/16 Paroxetine HCl [Paxil -] 20 mg PO DAILY 10/22/16 Rosuvastatin Calcium [Crestor] 1 tab PO HS 10/22/16 Ondansetron [Zofran *Odt*] 4 mg SL TID #30 od.tablet 10/24/16
[2016-12-21] MEDS ORDERED: metroNIDAZOLE 250 MG TABLET PO SCH (22:00)
[2016-12-22] MEDS ORDERED: LEVOFLOXACIN 750 MG TABLET PO SCH (10:00)
== END 2016-12-21 18:30 | disposition home or self-care (01) | DRG 244 ==
LOC: JER 07:51 → JERBED 12:14 → J6S 16:16
PROVIDERS: ADMIT Family Medicine; ATTEND Family Medicine
DX: K57.32 Diverticulitis of large intestine without perforation or abscess without bleeding (principal); E78.5 Hyperlipidemia, unspecified; Z87.442 Personal history of urinary calculi; Z87.891 Personal history of nicotine dependence; I73.9 Peripheral vascular disease, unspecified; E86.0 Dehydration
CPT/HCPCS: 36415; 74177-TC; 76775-TC; 76856-TC; 80048; 80053; 81003; 83735; 85025; 85651; 86141; 99281-25